=== PATIENT | male | born 1950 | race Two or more races ===

== ENCOUNTER 2025-02-10 18:03 | Inpatient (IN) | payer MEDICARE, SELFPAY ==
[2025-02-10 18:13] VITALS: BP 154/73; PULSE 72; RESP 17; TEMP 36.8; O2SAT 98; BMI 29.2
--- NOTE | 2025-02-10 18:40 | XR_ITS ---
Examination: Abdomen sonogram, Limited Date and time of exam: February 10, 2025, 1910 hrs. Indications: Epigastric pain 4 days with nausea Technique: Real-time jesus scale transabdominal sonographic images of the upper abdomen obtained. Findings: Contracted gallbladder No stones seen Common bile duct 0.3 cm Pancreatic head 2.7 cm Liver 15.9 cm fatty infiltration lobular contour Normal hepatopedal portal venous flow Patent IVC Impression: Repeat the gallbladder portion of this study with fasting Suspicious for primary hepatocellular disease
--- NOTE | 2025-02-10 18:40 | EDRME_ITS ---
Rapid Medical Screening Exam [facility] Arrival date/time: 02/10/25 18:03 74M with history of appendectomy, DM and HTN presents to ED with 3 day of intermittent epigastric/upper ab pain and some N/V. Normal output. Chief Complaint: Abdominal Pain Time Seen by Provider: 02/10/25 18:40 Vital signs: Vital Signs Temperature 98.2 F 02/10/25 18:13 Pulse Rate 72 02/10/25 18:13 Respiratory Rate 17 02/10/25 18:13 Blood Pressure 154/73 H 02/10/25 18:13 Pulse Oximetry (%) 98 02/10/25 18:13 Oxygen Delivery Method Room Air 02/10/25 18:13
--- NOTE | 2025-02-10 18:41 | EDNOTE_ITS ---
ED General RME/HPI General Chief complaint: Abdominal Pain Stated complaint: ABD PAIN, NAUSEA AND HEADACHE Time Seen by Provider: 02/10/25 18:40 Arrival date/time: 02/10/25 18:03 RME / HPI RME / HPI narrative: 02/10/25 18:03 74M with history of appendectomy, DM and HTN presents to ED with 3 day of intermittent epigastric/upper ab pain with associated vomiting that was described as bilious. Patient reports that he has had pain in his epigastric region that has been radiating to his back and also going to the left and right side of his abdomen. He denies any chest pain, shortness of breath, however has not been able to tolerate his meals fully, last time he vomited today was 2 PM. Denies any history of gallbladder disease, denies any recent drinking as well. He says his pain right now is rated 12 out of 10 at this time. Denies any recent blood in his stool. Patient denies blood in his vomit. Denies blood in his stool. No shortness of breath. Related Data Home Medications ?Medication ?Instructions ?Recorded ?Confirmed metformin 1,000 mg tablet 1,000 mg PO BID #0 tabs 12/24 (Glucophage) Aspirin Ec * (ECOTRIN *) 81 mg PO QDAY ##0 04/21/15 Allergies Allergy/AdvReac Type Severity Reaction Status Date / Time NKA* Allergy Uncoded 02/10/25 18:07 Review of Systems Review of Systems Narrative Review of Systems: Constitutional: No fever, chills, fatigue, weakness, weight loss HEENT: No eye pain, vision loss, ear pain, hearing loss, dysphagia, Cardiovascular: No chest pain, palpitations, edema, pain with walking Respiratory: No cough, shortness of breath, wheezing GI: + Nausea, vomiting, abdominal pain, no constipation, blood in stool, loss of appetite, heartburn Extremities: No presence of pitting edema MSK: No back pain, joint pain, joint swelling Neuro: No dizziness, numbness, weakness, headaches, seizures, tremors Psych: No anxiety, depression ED Exam Narrative Physical exam: General: AAOx3, NAD, HEENT: Dry mucous membranes, conjunctiva clear, EOMI, PERRLA, Cardiovascular: S1, S2, radial pulses +2 bilat, RRR Pulmonary: CTAB bilat no cough, no wheezing GI: Tenderness to palpitation in RUQ and LUQ, abdomen soft, no rebound tenderness or distension, FADUMO exam shows some minimal stool that is slightly red Extremities: No presence of trace or pitting edema in lower extremities bilaterally, dorsalis pedis pulses +2 bilaterally Neuro: AAOx3, no focal motor or sensory deficits in the UE or LE bilat Psych: Good judgement, thought and behavior Course Quality Measures none Orders Category Date Time Status Bedside Blood Glucose Q2HX3 Care 02/10/25 21:45 Active COVID-19 Screening Questionnaire NOW Care 02/10/25 22:37 Active Decision to Admit X1 Care 02/10/25 22:37 Completed Insert IV NOW Care 02/10/25 21:42 Active NPO NOW Care 02/10/25 21:46 Active Diet NPO (NOW) Diet 02/10/25 21:[address] abdomen pelvis wo con Stat Exams 02/10/25 23:16 Taken KUB [XR abdomen 1V] Stat Exams 02/10/25 23:09 Taken US gall bladder Stat Exams 02/10/25 18:40 Completed CBC Stat Lab 02/10/25 18:55 Completed CMP [Comprehensive Metabolic Panel] Stat Lab 02/10/25 18:55 Completed Lipase Stat Lab 02/10/25 18:55 Completed Urinalysis, C/S if Indicated Stat Lab 02/10/25 19:17 Completed ALBUTEROL RT 0.5ml [Proventil Rt 0.5ml] Med 02/10/25 21:54 Discontinued 2.5 mg .ROUTE .STK-MED ONE ALBUTEROL RT 0.5ml [Proventil Rt 0.5ml] Med 02/10/25 21:42 Discontinued 2.5 mg INH X1 ONE Dextrose 50% Syr [D50w Syringe Abboject] Med 02/10/25 21:44 Active 25 ml IV Q15MIN PRN Dextrose 50% Syr [D50w Syringe Abboject] Med 02/10/25 21:44 Active 50 ml IV Q15MIN PRN Dextrose 50% Syr [D50w Syringe Abboject] Med 02/10/25 21:42 Discontinued 50 ml IVP X1 ONE Famotidine [Pepcid] Med 02/10/25 18:39 Discontinued 40 mg PO X1 ONE Glucagon Inj Med 02/10/25 21:44 Active 1 mg IM Q15MIN PRN HYDROmorphone INJ [Dilaudid Inj] Med 02/10/25 21:42 Discontinued 1 mg IVP X1 ONE Insulin Regular Med 02/10/25 21:42 Discontinued 5 unit IV X1 ONE Ondansetron Odt [Zofran Odt] Med 02/10/25 18:39 Discontinued 4 mg PO X1 ONE Sodium Chloride 0.9% 1000 ml [Ns] 1,000 ml Med 02/10/25 21:46 Discontinued IV 999 mls/hr Sodium Chloride 0.9% 1000 ml [Ns] 1,000 ml Med 02/10/25 21:59 Discontinued IV 999 mls/hr Sodium Chloride Rt Moraima 0.9% [NS Rt Moraima 0.9%] Med 02/10/25 21:42 Active 3 ml INH PRN PRN Vital Signs Vital signs: Vital Signs Temperature 98.2 F 02/10/25 18:13 Pulse Rate 72 02/10/25 18:13 Respiratory Rate 17 02/10/25 18:13 Blood Pressure 154/73 H 02/10/25 18:13 Pulse Oximetry (%) 98 02/10/25 18:13 Oxygen Delivery Method Room Air 02/10/25 18:13 Discharge Plan Prescriptions/Referrals Prescriptions/Med Rec: No Action metformin [Glucophage] 1,000 MG tablet 1,000 mg PO BID Qty: 0 Aspirin Ec * (ECOTRIN *) 81 MG TABLET.DR 81 mg PO QDAY Qty: 0 Referrals: Ebony Sauer MD [Primary Care Provider] - In 1 week Problem List Clinical Impression: GI bleed Patient/Caregiver Discharge Instructions Print Language: [place] Attestation Attestation I, Dr. Oneil, have reviewed the history, exam, and assessment of the patient. I have evaluated the patient independently and agree with the plan of care documented by the resident Dr. Coe. All diagnostic studies were reviewed and discussed. I confirm the diagnosis as documented by the resident. I was present during the Medical Decision Making for this patient. The patient?s plan of care was created between myself and the resident and consistent with our discussion of the patient?s case. Patient otherwise has a soft abdomen. No rebound. Doubt perforation. EKG shows no ST elevation OK. His blood pressure stable 124/45 without pulse of 60. He is afebrile. White count is noted to be 14,000 however he is H&H is low at 7.3/21 which is new. Platelets are normal at 349. Potassium is noted to be 5.9 and this is mild hyperkalemia. BUN/creatinine is noted to be elevated at 28/1.7. Otherwise his LFTs are normal and lipase is normal. Urinalysis does not show UTI. Patient has a normal gallbladder. The patient is admitted to the medicine team for lower GI bleed. 2350 hrs. will add troponin although likely not cardiac at this time. The hospitalist team requested a CT scan. While in the emergency department is noted that teleradiology is has a global outage and the CT may not be read tonight however the CT is ordered as requested by the hospice team. KUB was canceled. MDM Narrative MDM hospital course (for use when minimal MDM required): Differential diagnosis includes lower GI bleed, upper GI bleed, alcohol use, pancreatitis, diverticulitis. OK. 2019: Labs reviewed which showed leukocytosis, hemoglobin 7.3, creatinine 1.7, plus floor glucose in the urine. Concern for GI bleed thus we performed FADUMO and FOBT was positive. Despite patient not having reported blood in stool or hematemesis, we are concern for gastric ulcer and in the setting of possible acute blood loss anemia, there is also KOLBY this be related to GI bleed. Patient also given hyperkalemia cocktail with breathing treatment and insulin. Patient also given 2 L bolus. 2041: Spoke with hospitalist team and discussed case, they accept patient for admission. Medication Administration(s) Medication Administration History Dextrose (Dextrose 50%-Water Inj 50 Ml Syringe) 25 ml IV Q15MIN PRN PRN Reason: BG 50-70 responsive npo pt Stop: 03/12/25 21:43 Dextrose (Dextrose 50%-Water Inj 50 Ml Syringe) 50 ml IV Q15MIN PRN PRN Reason: BG <50 OR BG <70 & pt unresponsive Stop: 03/12/25 21:43 Glucagon (Glucagon Inj 1 Mg Vial) 1 mg IM Q15MIN PRN PRN Reason: BG <70, and no IV access Sodium Chloride (Sodium Chloride Rt Moraima 0.9% 3 Ml Nebu) 3 ml INH PRN PRN PRN Reason: SOLN Stop: 03/12/25 21:41 Last Admin: 02/10/25 21:58 Dose: 3 ml Documented By: TOÑO Discontinued Medications Albuterol (Albuterol Rt 2.5 Mg/0.5 Ml Nebu) 2.5 mg INH X1 ONE Stop: 02/10/25 21:43 Last Admin: 02/10/25 21:56 Dose: 2.5 mg Documented By: TOÑO Albuterol (Albuterol Rt 2.5 Mg/0.5 Ml Nebu) Confirm Administered Dose 2.5 mg .ROUTE .STK-MED ONE Stop: 02/10/25 21:55 Last Admin: 02/10/25 21:56 Dose: Not Given Documented By: TOÑO Non-Admin Reason: Duplicate Medication on eMAR Dextrose (Dextrose 50%-Water Inj 50 Ml Syringe) 50 ml IVP X1 ONE Stop: 02/10/25 21:43 Last Admin: 02/10/25 22:17 Dose: 50 ml Documented By: BASILIA Famotidine (Famotidine 20 Mg Tablet) 40 mg PO X1 ONE Stop: 02/10/25 18:40 Last Admin: 02/10/25 19:30 Dose: 40 mg Documented By: CONNOR Hydromorphone HCl (Hydromorphone Inj 2 Mg/Ml Vial) 1 mg IVP X1 ONE Stop: 02/10/25 21:43 Last Admin: 02/10/25 22:17 Dose: 1 mg Documented By: BASILIA Sodium Chloride (Ns) 1,000 mls @ 999 mls/hr IV .Q1H1M ONE Stop: 02/10/25 22:46 Last Infusion: 02/10/25 23:17 Dose: Infused Documented By: Admin: 02/10/25 22:16 Dose: 999 mls/hr Documented By: BASILIA Sodium Chloride (Ns) 1,000 mls @ 999 mls/hr IV .Q1H1M ONE Stop: 02/10/25 22:59 Last Infusion: 02/10/25 23:18 Dose: Infused Documented By: Admin: 02/10/25 22:17 Dose: 999 mls/hr Documented By: BASILIA Insulin Human Regular (Insulin Hum Regular 1 Unit/0.01 Ml (Per Unit)) 5 unit IV X1 ONE Stop: 02/10/25 21:43 Last Admin: 02/10/25 22:15 Dose: 5 unit Documented By: BASILIA Co-signed By: CVL Ondansetron HCl (Ondansetron Odt 4 Mg Tabrap) 4 mg PO X1 ONE; Protocol Stop: 02/10/25 18:40 Last Admin: 02/10/25 19:30 Dose: 4 mg Documented By: CONNOR
[2025-02-10 19:06] LABS: Basophils # (Auto) 0.0 Thou/mm3 (0.0-0.2); Basophils % (Auto) 0 % (0-2.5); Eosinophils # (Auto) 0.1 Thou/mm3 (0.0-0.5); Eosinophils % (Auto) 1 % (0-10); Hematocrit 21.7 % (41.0-53.0); Immature Granulocytes Auto 0.07 Thou/mm3 (0.00-0.00); Lymphocytes # (Auto) 1.3 Thou/mm3 (1.0-4.8); Lymphocytes % (Auto) 10 % (10-50); Mean Corpuscular HGB Conc 33.6 g/dl (31.0-37.0); Mean Corpuscular Hemoglobin 32.0 pg (25.0-35.0); Mean Corpuscular Volume 95 fL (80-100); Monocytes # (Auto) 0.6 Thou/mm3 (0.0-0.8); Monocytes % (Auto) 4 % (0-12); Neutrophils # (Auto) 12.1 Thou/mm3 (1.8-7.7); Neutrophils % (Auto) 85 % (37-80); Nucleated Red Blood Cell # 0.00 Thou/mm3 (0.00-0.00); Nucleated Red Blood Cell % 0 /100 WBC (0); Platelet Count 349 Thou/mm3 (140-440); RDW Standard Deviation 50.2 fL (35.1-43.9); Red Blood Count 2.28 Miln/mm3 (4.50-5.90); White Blood Count 14.2 Thou/mm3 (3.8-10.6)
[2025-02-10 19:16] LABS: Hemoglobin 7.3 g/dL (13.5-16.0)
[2025-02-10 19:21] LABS: Alanine Aminotransferase 21 U/L (10-49); Albumin, Serum 3.8 gm/dL (3.4-4.8); Albumin/Globulin Ratio 1.7 (1.2-2.2); Alkaline Phosphatase 101 U/L (46-116); Anion Gap 8 (7-16); Aspartate Amino Transferase 17 U/L (0-34); BUN/Creatinine Ratio 16 Ratio (12-20); Bilirubin,Total 0.2 mg/dL (0.3-1.2); Blood Urea Nitrogen 28 mg/dL (9-23); Calcium 8.7 mg/dL (8.3-10.6); Calcium (Corrected) 8.9 mg/dL (8.5-10.1); Carbon Dioxide 25.6 mMol/L (20.0-31.0); Chloride 102 mMol/L (98-107); Creatinine (Component) 1.7 mg/dL (0.6-1.3); Estimated Creatinine Clearance 34.6 mL/min (>60); Globulin 2.2 gm/dL (2.3-3.5); Glucose 200 mg/dL (74-106); Lipase 37 U/L (12-53); Osmolality,Calculated 283 (275-295); Potassium 5.9 mMol/L (3.4-5.1); Sodium 136 mMol/L (136-145); Total Protein 6.0 gm/dL (5.7-8.2); eGFR 42 See Note
[2025-02-10] MEDS: ONDANSETRON ODT 4 MG TABRAP PO (19:30)
[2025-02-10] MEDS: FAMOTIDINE 20 MG TABLET 40 MG PO (19:30)
[2025-02-10 19:48] LABS: Collection Type, Urine Clean Catch
[2025-02-10 20:17] LABS: Bilirubin,Urine Negative (Negative); Blood,Urine Negative (Negative); Clarity,Urine Clear (Clear/Hazy); Color,Urine Lt-Yellow (Lt Yel-Yel); Culture Indicated,Urine Not Indicated; Glucose, Urine 4+ (Negative); Ketones,Urine Negative (Negative); Leukocyte Esterase,Urine Negative (Negative); Nitrite,Urine Negative (Negative); PH,Urine 6.5 (5.0-7.0); Protein,Urine Trace (Neg - Trace); RBC,Urine 2 /hpf (0-3); Specific Gravity,Urine 1.023 (1.001-1.035); Squamous Epithelial Cell,Urine < 1 /hpf (0-5); Urobilinogen,Urine Negative mg/dL (0.0-1.0); WBC,Urine < 1 /hpf (0-5)
[2025-02-10 20:37] VITALS: BP 161/61; PULSE 57; RESP 12; TEMP 36.8; O2SAT 99
[2025-02-10 21:56] VITALS: PULSE 58
[2025-02-10] MEDS: ALBUTEROL RT 2.5 MG/0.5 ML NEBU INH (21:56)
[2025-02-10] MEDS: SODIUM CHLORIDE RT SOL 0.9% 3 ML NEBU INH (21:58)
[2025-02-10 21:59] VITALS: PULSE 56; RESP 16; O2SAT 100
[2025-02-10] MEDS: INSULIN HUM REGULAR 1 UNIT/0.01 ML (PER UNIT) 5 UNIT IV (22:15)
[2025-02-10] MEDS: SODIUM CHLORIDE 0.9% 1000 ML 1,000 ML 999 ML IV ×2 (22:16→22:17)
[2025-02-10] MEDS: DEXTROSE 50%-WATER INJ 50 ML SYRINGE IVP (22:17)
[2025-02-10] MEDS: HYDROmorphone INJ 2 MG/ML VIAL 1 MG IVP (22:17)
[2025-02-10 22:34] VITALS: BP 124/45; PULSE 60; RESP 16; TEMP 36.6; O2SAT 98
--- NOTE | 2025-02-10 23:09 | XR_ITS ---
Examination: Abdomen AP single view Technique: AP portable supine abdomen, single view Exam date and time: February 10, 2025, 11:13 PM Indications: Upper abdominal pain beginning 3 days ago. Findings: Moderate air and stool throughout the colon No obstruction. No free air Prominent osteopenia Moderate bilateral hip osteoarthritis Impression: Moderate air and stool throughout the colon No obstruction
--- NOTE | 2025-02-10 23:16 | XR_ITS ---
Examination: CT abdomen and pelvis without contrast. Coronal 3-D reconstructions. Sagittal 2-D reconstructions. Date and time of exam:February 10, 2025, 11:32 PM, comparison November 05, 2022 Indications: Abdominal pain and vomiting today CTDI: vol (mGy): 5.52 DLP: (mGycm): 323 Technique: Axial images of the abdomen have been obtained, 3 mm slice thickness Intravenous contrast material has not been administered. Low dose protocols were performed. One or more of the following dose reduction techniques were used; automated exposure control, adjustment of the mA and/or KV according to patient size, use of iterative reconstruction technique. Findings: 8mm pulmonary nodule right lower lobe Moderate enlargement cardiac contour Liver is irregular in contour No definite gallstones Spleen is not enlarged No pancreatic or adrenal mass No renal or ureteral calculi 23 mm posterior left renal cyst Heavy abdominal aortic calcification no aneurysmal dilatation Trace ascites Mildly fluid distended small bowel loops and fluid distended right colon No bowel obstruction Distended urinary bladder Prostate is irregular in contour and enlarged 4.5 x 4.6 cm in dimension No pericecal inflammatory change Prominent osteopenia Impression: 8mm pulmonary nodule right lower lobe, recommend PA chest follow-up Cirrhosis versus primary hepatocellular disease Trace ascites No bowel obstruction No CT findings of appendicitis Prostate irregular in contour and moderately enlarged with distended urinary bladder Mild small bowel ileus versus enteritis, mild colitis pattern
[2025-02-11] VITALS (24 sets, daily range): BP systolic 106–149; BP diastolic 45–66; PULSE 54–88; RESP 11–20; TEMP 35.7–36.7; O2SAT 93–100; BMI 20.5
--- NOTE | 2025-02-11 00:02 | EKG_ITS ---
[facility] Test Date: 2025-02-11 Pat Name: DAMIAN BRADSHAW Department: Room: - Gender: Male [employer]: : 1950 Requested By: Stanislav Ledesma Order Number: [id number] Reading MD: Stanislav Ledesma Measurements Intervals [place] Rate: 54 P: 72 MD: 151 QRS: 29 QRSD: 113 T: 49 QT: 461 QTc: 441 Interpretive Statements SINUS BRADYCARDIA No previous ECG available for comparison /store/S0/[id number]/ecg/[id number].pdf
--- NOTE | 2025-02-11 00:18 | PD.RESHP ---
Documentation for date of: 02/11/25 HPI History of Present Illness Chief complaint: Abdominal pain History of present illness: 74-year-old male with past medical history of hypertension, hyperlipidemia, diabetes mellitus type 2, coronary artery disease status post CABG x 3 (2011) who presented to the ED due to vomiting. Patient states that he has had approximately around 3 days of abdominal pain has been progressively worsening with associated nausea and nonbilious, nonbloody bloody vomiting states the vomitus is mostly food particles. He denies any recent use of NSAIDs, pain has not worsening or improving with food. He also has a wound on his first metatarsal of left lower extremity that has not healed for the past 4 months but states no pain nor any fevers at this time. He denies any alcohol, cigarette, drug use. He denies fever, chills, shortness of breath, chest pain, changes in urinary or bowel habits. Patient will be admitted for workup for GI bleed, KOLBY, Hyperkalemia. ED course: BP 154/73, HR 72, saturating 98% on room air. Labs significant for hemoglobin 7.3, hematocrit 21.7, potassium 5.9, BUN 28, creatinine 1.7, UA shows some glucose +4 but negative for UTI. EKG shows sinus bradycardia. CT abdomen pelvis shows 8mm pulmonary nodule right lower lobe, Cirrhosis versus primary hepatocellular disease, Trace ascites, No bowel obstruction, No CT findings of appendicitis, Prostate irregular in contour and moderately enlarged with distended urinary bladder, Mild small bowel ileus versus enteritis, mild colitis pattern PMHx: As above SX Hx: Appendectomy, CABG x 3 Social Hx: Denies cigarette use, denies alcohol use, denies illicit substances including THC FH X: Unknown Review of Systems Review of Systems Systems Reviewed: All systems reviewed, normal except as documented Exam Vital Signs Temp Pulse Resp BP Pulse Ox O2 Del Method 97.8 F 60 16 124/45 L 98 Room Air 02/10/25 22:34 02/10/25 22:34 02/10/25 22:34 02/10/25 22:34 02/10/25 22:34 02/10/25 22:34 Narrative Exam Physical Exam GENERAL: NAD, AAOx3 HEENT: Moist mucosa. Eyes open, symmetrical, & clear CARDIO: Heart RRR, no obvious murmurs PULM: No noted coughing/dyspnea CTA B/L, no R/W/R GI: Abdomen soft, nondistended, no pain on palpation. BSx4 SKIN/MSK/EXT: First metatarsal of right lower extremity amputated, left lower extremity first metatarsal ulcer and wound wet, no pain on palpation. Diminished pulses bilateral lower extremities NEURO: AAOx3, no focal neuro deficits, able to move all 4 extremities Results: Labs 02/11/25 16:34 02/11/25 16:34 Labs: Short CBC 02/10/25 Range/Units 18:55 WBC 14.2 H (3.8-10.6) Thou/mm3 Hgb 7.3 L (13.5-16.0) g/dL Hct 21.7 L* (41.0-53.0) % Plt Count 349 (140-440) Thou/mm3 BMP 02/10/25 18:55 Sodium 136 Potassium 5.9 H Chloride 102 Carbon Dioxide 25.6 BUN 28 H Creatinine 1.7 H Glucose 200 H Calcium 8.7 Liver Function 02/10/25 Range/Units 18:55 Total Bilirubin 0.2 L (0.3-1.2) mg/dL AST 17 (0-34) U/L ALT 21 (10-49) U/L Alkaline Phosphatase 101 (46-116) U/L Albumin 3.8 (3.4-4.8) gm/dL Urine 02/10/25 Range/Units 19:17 Urine Color Lt-Yellow (Lt Yel-Yel) Urine Clarity Clear (Clear/Hazy) Urine pH 6.5 (5.0-7.0) Ur Specific [place] 1.023 (1.001-1.035) Urine Protein Trace (Neg - Trace) Urine Glucose (UA) 4+ A (Negative) Quality Measures Quality Measures VTE prophylaxis Advance care planning discussed with:: patient Medications Home Medications and Allergies Home Medications ?Medication ?Instructions ?Recorded ?Confirmed ?Type metformin 1,000 mg tablet 500 mg PO BID #0 tabs 02/16/15 02/11/25 History (Glucophage) atorvastatin 80 mg tablet 80 mg PO HS 02/11/25 02/11/25 History diltiazem HCl 180 mg 180 mg PO Q12H 02/11/25 02/11/25 History capsule,extended release 24 hr empagliflozin 25 mg tablet 25 mg PO QDAY 02/11/25 02/11/25 History (Jardiance) gabapentin 100 mg capsule 100 mg PO Q12H 02/11/25 02/11/25 History sulfamethoxazole 800 1 tab PO QDAY 02/11/25 02/11/25 History mg-trimethoprim 160 mg tablet tamsulosin 0.4 mg capsule 0.4 mg PO QDAY 02/11/25 02/11/25 History Allergies Allergy/AdvReac Type Severity Reaction Status Date / Time No Known Allergies Allergy Unverified 02/11/25 17:53 Visit Medications Acetaminophen (Acetaminophen 325 Mg Tablet) 650 mg PO Q6H PRN PRN Reason: Fever >100.4 Stop: 03/13/25 00:02 Acetaminophen (Acetaminophen 325 Mg Tablet) 650 mg PO Q6H PRN PRN Reason: PAIN SCALE 1-3 (mild Stop: 03/13/25 00:02 Dextrose (Dextrose 50%-Water Inj 50 Ml Syringe) 50 ml IV Q15MIN PRN PRN Reason: BG <50 OR BG <70 & pt unresponsive Stop: 03/12/25 21:43 Dextrose (Dextrose 50%-Water Inj 50 Ml Syringe) 25 ml IV Q15MIN PRN PRN Reason: BG 50-70 responsive npo pt Stop: 03/13/25 00:13 Dextrose (Dextrose 50%-Water Inj 50 Ml Syringe) 50 ml IV Q15MIN PRN PRN Reason: BG <50 OR BG <70 & pt unresponsive Stop: 03/13/25 00:13 Glucagon (Glucagon Inj 1 Mg Vial) 1 mg IM Q15MIN PRN PRN Reason: BG <70, and no IV access Glucagon (Glucagon Inj 1 Mg Vial) 1 mg IM Q15MIN PRN PRN Reason: BG <70, and no IV access Insulin Human Lispro (Insulin Lispro (Admelog) 1 Unit/0.01 Ml Unit) 0 unit SC AC [facility]; Protocol Stop: 03/13/25 07:29 Ondansetron HCl (Ondansetron Inj 2 Mg/Ml Inj 2 Ml) 4 mg IVP Q6H PRN; Protocol PRN Reason: NAUSEA OR VOMITING Stop: 03/13/25 00:02 Pantoprazole Sodium (Pantoprazole Inj 40 Mg Vial) 40 mg IVP BID MURIEL Stop: 03/13/25 08:59 Sennosides (Senna Tablet) 1 tab PO QDAY MURIEL; Protocol Stop: 03/13/25 08:59 Sodium Chloride (Sodium Chloride Rt Moraima 0.9% 3 Ml Nebu) 3 ml INH PRN PRN PRN Reason: SOLN Stop: 03/12/25 21:41 Last Admin: 02/10/25 21:58 Dose: 3 ml Discontinued Medications Albuterol (Albuterol Rt 2.5 Mg/0.5 Ml Nebu) 2.5 mg INH X1 ONE Stop: 02/10/25 21:43 Last Admin: 02/10/25 21:56 Dose: 2.5 mg Dextrose (Dextrose 50%-Water Inj 50 Ml Syringe) 50 ml IVP X1 ONE Stop: 02/10/25 21:43 Last Admin: 02/10/25 22:17 Dose: 50 ml Dextrose (Dextrose 50%-Water Inj 50 Ml Syringe) 25 ml IV Q15MIN PRN PRN Reason: BG 50-70 responsive npo pt Stop: 03/12/25 21:43 Famotidine (Famotidine 20 Mg Tablet) 40 mg PO X1 ONE Stop: 02/10/25 18:40 Last Admin: 02/10/25 19:30 Dose: 40 mg Hydromorphone HCl (Hydromorphone Inj 2 Mg/Ml Vial) 1 mg IVP X1 ONE Stop: 02/10/25 21:43 Last Admin: 02/10/25 22:17 Dose: 1 mg Sodium Chloride (Ns) 1,000 mls @ 999 mls/hr IV .Q1H1M ONE Stop: 02/10/25 22:46 Last Infusion: 02/10/25 23:17 Dose: Infused Sodium Chloride (Ns) 1,000 mls @ 999 mls/hr IV .Q1H1M ONE Stop: 02/10/25 22:59 Last Infusion: 02/10/25 23:18 Dose: Infused Insulin Human Regular (Insulin Hum Regular 1 Unit/0.01 Ml (Per Unit)) 5 unit IV X1 ONE Stop: 02/10/25 21:43 Last Admin: 02/10/25 22:15 Dose: 5 unit Ondansetron HCl (Ondansetron Odt 4 Mg Tabrap) 4 mg PO X1 ONE; Protocol Stop: 02/10/25 18:40 Last Admin: 02/10/25 19:30 Dose: 4 mg Assessment & Plan Plan 74-year-old male with past medical history as stated above who presented to the ED due to abdominal pain. Patient is admitted for GI workup, KOLBY, hyperkalemia. #GI bleed, likely upper #Melena Possibly secondary to gastric ulcer Patient presented with abdominal pain, nausea, nonbloody vomiting, melena, denies any iron supplementation, NSAID use Found to be FOBT positive Hemoglobin on admission 7.3 on previous chart review noted to be 10.7 ? Protonix 40mg IV twice daily ? GI consulted, appreciate recs ? Transfuse if hemoglobin less than 7 ? Follow-up CBC #Acute Kidney injury #Hyperkalemia Prerenal versus postrenal CT shows distended bladder Creatinine 1.7, potassium 5.9 In the ED patient received hyperkalemia cocktail and 2 L of IV fluids ? [place] catheter placed ? on IVF at 60 mL/h ? Avoid nephrotoxins ? Renally dose medications ? Monitor CMP #Left lower extremity wound. #Concern for osteomyelitis Patient has a chronic wound on his left toe that has not healed >4months, currently wet He has prior history of osteomyelitis on the right toe for which he saw wound care and later amputated ? X-ray left toe ordered ? Follow-up ESR/CRP ? Wound care ordered Chronic problems: #Hypertension #Hyperlipidemia #CAD status post CABG X3 #Diabetes mellitus type 2, [id number] ? SSI ? Hypoglycemia protocol ? Hold antiplatelet therapy in setting of GI bleed ? Withholding antihypertensive at this time while awaiting med rec and blood pressure normotensive Health Maintenance: Disposition: Telemetry Fluids: LR Feeding: N.p.o. Thrombo prophylaxis: SCDs Gastric Ulcer prophylaxis: Pantoprazole CODE STATUS: Full code Case discussed with my attending Dr. Sharon Beck MD PGY-2 Disclaimer: Despite multiple revisions, due to the dictation software being used, the document bellow may not be free of grammatical errors including phonetic/typographic errors. However, this does not deter from our commitment to providing health care in the patient's best interest in mind. Attending Provider Attestation/Addendum After examination of the patient and review of the clinical data I feel that this patient needs admission to the hospital for further treatment/evaluation. Plan of care discussed with patient and is in agreement. I Stanislav Herrera MD, attest that I was physically present for ricardo portions of evaluation, and examined patient, labs and imagings and plan of care were discussed with IM residents team, and I agree with the findings and plans documented above.
--- NOTE | 2025-02-11 00:24 | XR_ITS ---
Examination: Toes, left foot first digit Technique: Toes AP oblique lateral 3 views left foot first digit Date and time of exam: February 11, 2025, 0030 hrs. Indications: Redness swelling and pain involving the left first toe today Findings: Soft tissue swelling about the first toe Suspicious for early cortical bone destruction involving the ungual tuft tip with adjacent soft tissue swelling, on the lateral view suspicious for early cortical bone destruction involving the plantar surface of the distal phalanx Impression: Early osteomyelitis distal phalanx first digit with marked soft tissue thinning at the tip of the first digit Consider MRI foot without contrast follow-up
[2025-02-11] MEDS: RINGERS LACTATED 1000 ML 1,000 ML 60 ML IV (00:40)
[2025-02-11 01:54] LABS: Sed Rate (ESR) 52 mm/hr (0-20)
[2025-02-11 02:20] LABS: Troponin I < 0.020 ng/mL (0.0-0.045)
[2025-02-11 02:34] LABS: C-Reactive Protein 15.2 mg/dL (0.0-0.9)
[2025-02-11] MEDS: ACETAMINOPHEN 325 MG TABLET 650 MG PO (05:58)
[2025-02-11 07:20] LABS: Basophils # (Auto) 0.0 Thou/mm3 (0.0-0.2); Basophils % (Auto) 0 % (0-2.5); Eosinophils # (Auto) 0.0 Thou/mm3 (0.0-0.5); Eosinophils % (Auto) 0 % (0-10); Hematocrit 20.5 % (41.0-53.0); Immature Granulocytes Auto 0.08 Thou/mm3 (0.00-0.00); Lymphocytes # (Auto) 1.6 Thou/mm3 (1.0-4.8); Lymphocytes % (Auto) 12 % (10-50); Mean Corpuscular HGB Conc 33.2 g/dl (31.0-37.0); Mean Corpuscular Hemoglobin 31.5 pg (25.0-35.0); Mean Corpuscular Volume 95 fL (80-100); Monocytes # (Auto) 0.7 Thou/mm3 (0.0-0.8); Monocytes % (Auto) 5 % (0-12); Neutrophils # (Auto) 11.1 Thou/mm3 (1.8-7.7); Neutrophils % (Auto) 82 % (37-80); Nucleated Red Blood Cell # 0.00 Thou/mm3 (0.00-0.00); Nucleated Red Blood Cell % 0 /100 WBC (0); Platelet Count 348 Thou/mm3 (140-440); RDW Standard Deviation 50.2 fL (35.1-43.9); Red Blood Count 2.16 Miln/mm3 (4.50-5.90); White Blood Count 13.5 Thou/mm3 (3.8-10.6)
[2025-02-11 07:23] LABS: Hemoglobin 6.8 g/dL (13.5-16.0)
[2025-02-11 07:38] LABS: Alanine Aminotransferase 19 U/L (10-49); Albumin, Serum 3.5 gm/dL (3.4-4.8); Albumin/Globulin Ratio 1.8 (1.2-2.2); Alkaline Phosphatase 94 U/L (46-116); Anion Gap 7 (7-16); Aspartate Amino Transferase 15 U/L (0-34); BUN/Creatinine Ratio 20 Ratio (12-20); Bilirubin,Total 0.2 mg/dL (0.3-1.2); Blood Urea Nitrogen 28 mg/dL (9-23); Calcium 8.3 mg/dL (8.3-10.6); Calcium (Corrected) 8.7 mg/dL (8.5-10.1); Carbon Dioxide 23.0 mMol/L (20.0-31.0); Chloride 107 mMol/L (98-107); Creatinine (Component) 1.4 mg/dL (0.6-1.3); Estimated Creatinine Clearance 34.5 mL/min (>60); Globulin 1.9 gm/dL (2.3-3.5); Glucose 121 mg/dL (74-106); Magnesium 2.3 mg/dL (1.6-2.6); Osmolality,Calculated 280 (275-295); Potassium 5.7 mMol/L (3.4-5.1); Sodium 137 mMol/L (136-145); Total Protein 5.4 gm/dL (5.7-8.2); eGFR 53 See Note
[2025-02-11] MEDS: cefTRIAXone 2 GM in SODIUM CHLORIDE 0.9% (Popper) 50 ML IV (07:57)
[2025-02-11] MEDS: TAMSULOSIN HCL 0.4 MG CAPSULE PO (08:18)
[2025-02-11 08:20] LABS: Procalcitonin 0.16 ng/ml (0.0-0.49)
[2025-02-11 09:04] LABS: Misc Send Out* See Sep Rpt
[2025-02-11] MEDS: ALBUTEROL RT 2.5 MG/0.5 ML NEBU INH (09:13)
--- NOTE | 2025-02-11 10:01 | PD.RESCONSUL ---
HPI Data of Consult Requesting Physician: Girish Mckeon DO Admitting Provider: Stanislav Herrera MD Attending Provider: Girish Mckeon DO Primary Care Provider: Ebony Sauer MD Consult Narrative Reason for consult: Hgb 6.8 and FOBT + History of present illness: Mr Trammell is a 74 yo gentleman with a hx of CAD s/p cabg x3 2012, T2DM, BPH, HTN, HLD, who presented to the ED due to vomiting and RUQ tenderness. He had nausea that started 4 days ago and vomiting and abdominal pain that started 1 day prior to presenting to the ED. He reports that he used to be a heavy alcohol drinker but does not currently drink. He last drank in 2003. He has never been told that he has liver problems and has never been hospitalized due to varicies. He had recent admission in [facility] 2 months ago for acute symptomatic anemia for which he was given 1 unit of blood. The family is unable to describe what workup he had there. He had previously been taking iron supplements, but he had stopped because he became increasingly constipated. He reports that usually he has bowel movements every day but that he has had increased constipation. He He has never had a colonoscopy nor an endoscopy. He has a well healed amputation of his Right big toe and on his left foot he has a calloused wound on the tip of his Left big toe that he sees a asbestos removal worker in [place] for. xray of foot on this admission shows early osteomyelitis, Dr Resendez was consulted and wound care is on board Pt denies any systemic signs of infection and no recent sick contacts. No NSAIDS, abdominal pain is unchanged post prandial ROS endorses, nausea, nonbloody, non billious emesis, abdominal pain denies, fever, chills, sob, chest pain, dysuria, constipation or diarrhea. ED course: Vitals BP 154/73, HR 72, saturating 98% on room air. Labs significant for hemoglobin 7.3, hematocrit 21.7, potassium 5.9, BUN 28, creatinine 1.7, UA shows some glucose +4 but negative for UTI. EKG shows sinus bradycardia. Imaging significant for: CT abdomen pelvis shows 8mm pulmonary nodule right lower lobe, Cirrhosis versus primary hepatocellular disease, Trace ascites, No bowel obstruction, No CT findings of appendicitis, Prostate irregular in contour and moderately enlarged with distended urinary bladder, Mild small bowel ileus versus enteritis, mild colitis pattern PMHx: As above SX Hx: Appendectomy, CABG x 3 Social Hx: Denies cigarette use, denies current alcohol use (but endorses heavy drinking when he was younger, last drink 2003), denies illicit substances including THC FH X: no fhx of cancer cc:: cc: Girish Mckeon, DO Review of Systems Review of Systems Narrative Review of Systems: as per hpi Past Medical History Surgical History SURGICAL: Positive Coronary Artery Bypass Graft and Amputation Exam Vital Signs Temp Pulse Resp BP Pulse Ox O2 Del Method 96.9 F 61 16 106/66 100 Room Air 02/11/25 08:00 02/11/25 09:14 02/11/25 09:14 02/11/25 08:00 02/11/25 09:14 02/11/25 04:00 Narrative Exam GENERAL: no acute distress, AAO x3, comfortably laying in bed HEENT: Head AT/ NC. Mucous membranes dry. PERRL. NECK: Supple, no lymphadenopathy, no carotid bruits. CARDIOVASCULAR: RRR. Normal S1/S2, No m/r/g. No pitting edema of bilateral LEs. (midline sternal incision, hx of cabg 2011) RESPIRATORY: CTAB. No wheezing, rhonchi, crackles. GASTROINTESTINAL: Abdomen soft, mild RUQ tenderness no palpable masses. Bowel sounds present, no rebound or guarding MUSCULOSKELETAL:? Right hallux is amputated, well healed, and L hallux has calloused nonhealing wound (3-4 months old) NEUROLOGICAL: CN II-XII grossly intact. No focal deficits. Sensation intact, symmetric. PSYCHIATRIC: Awake and alert, not agitated, normal mood and affect. SKIN: No obvious rashes, no jaundice, normal turgor. Results Labs 02/13/25 04:50 02/13/25 04:50 Labs: Short CBC 02/10/25 02/11/25 Range/Units 18:55 06:40 WBC 14.2 H 13.5 H (3.8-10.6) Thou/mm3 Hgb 7.3 L 6.8 L* (13.5-16.0) g/dL Hct 21.7 L* 20.5 L* (41.0-53.0) % Plt Count 349 348 (140-440) Thou/mm3 BMP 02/10/25 02/11/25 18:55 06:40 Sodium 136 137 Potassium 5.9 H 5.7 H Chloride 102 107 Carbon Dioxide 25.6 23.0 BUN 28 H 28 H Creatinine 1.7 H 1.4 H Glucose 200 H 121 H D Calcium 8.7 8.3 Cardiac Enzymes 02/10/25 02/11/25 Range/Units 18:55 01:33 Troponin I Cancelled < 0.020 Liver Function 02/10/25 02/11/25 Range/Units 18:55 06:40 Total Bilirubin 0.2 L 0.2 L (0.3-1.2) mg/dL AST 17 15 (0-34) U/L ALT 21 19 (10-49) U/L Alkaline Phosphatase 101 94 (46-116) U/L Albumin 3.8 3.5 (3.4-4.8) gm/dL Urine 02/10/25 Range/Units 19:17 Urine Color Lt-Yellow (Lt Yel-Yel) Urine Clarity Clear (Clear/Hazy) Urine pH 6.5 (5.0-7.0) Ur Specific [place] 1.023 (1.001-1.035) Urine Protein Trace (Neg - Trace) Urine Glucose (UA) 4+ A (Negative) Quality Measures Quality Measures VTE prophylaxis Advance care planning discussed with:: patient Medications Home Medications and Allergies Home Medications ?Medication ?Instructions ?Recorded ?Confirmed ?Type atorvastatin 80 mg tablet 80 mg PO HS 02/11/25 02/11/25 History diltiazem HCl 180 mg 180 mg PO Q12H 02/11/25 02/11/25 History capsule,extended release 24 hr empagliflozin 25 mg tablet 25 mg PO QDAY 02/11/25 02/11/25 History (Jardiance) gabapentin 100 mg capsule 100 mg PO Q12H 02/11/25 02/11/25 History sulfamethoxazole 800 1 tab PO QDAY 02/11/25 02/11/25 History mg-trimethoprim 160 mg tablet tamsulosin 0.4 mg capsule 0.4 mg PO QDAY 02/11/25 02/11/25 History Allergies Allergy/AdvReac Type Severity Reaction Status Date / Time No Known Allergies Allergy Unverified 02/11/25 17:53 Visit Medications Acetaminophen (Acetaminophen 325 Mg Tablet) 650 mg PO Q6H PRN PRN Reason: Fever >100.4 Stop: 03/13/25 00:02 Acetaminophen (Acetaminophen 325 Mg Tablet) 650 mg PO Q6H PRN PRN Reason: PAIN SCALE 1-3 (mild Stop: 03/13/25 00:02 Last Admin: 02/11/25 05:58 Dose: 650 mg Dextrose (Dextrose 50%-Water Inj 50 Ml Syringe) 25 ml IV Q15MIN PRN PRN Reason: BG 50-70 responsive npo pt Stop: 03/13/25 00:13 Dextrose (Dextrose 50%-Water Inj 50 Ml Syringe) 50 ml IV Q15MIN PRN PRN Reason: BG <50 OR BG <70 & pt unresponsive Stop: 03/13/25 00:13 Glucagon (Glucagon Inj 1 Mg Vial) 1 mg IM Q15MIN PRN PRN Reason: BG <70, and no IV access Lactated Ringer's (Lactated Ringers) 1,000 mls @ 60 mls/hr IV .[id number] [facility] Stop: 02/11/25 17:06 Last Admin: 02/11/25 00:40 Dose: 60 mls/hr Ceftriaxone Sodium 2 gm/ (Sodium Chloride) 50 mls @ 100 mls/hr IV QDAY [facility] Stop: 02/18/25 07:44 Last Admin: 02/11/25 07:57 Dose: 100 mls/hr Insulin Human Lispro (Insulin Lispro (Admelog) 1 Unit/0.01 Ml Unit) 0 unit SC AC [facility]; Protocol Stop: 03/13/25 07:29 Last Admin: 02/11/25 07:47 Dose: Not Given Ondansetron HCl (Ondansetron Inj 2 Mg/Ml Inj 2 Ml) 4 mg IVP Q6H PRN; Protocol PRN Reason: NAUSEA OR VOMITING Stop: 03/13/25 00:02 Pantoprazole Sodium (Pantoprazole Inj 40 Mg Vial) 40 mg IVP BID [facility] Stop: 03/13/25 08:59 Last Admin: 02/11/25 08:18 Dose: 40 mg Sennosides (Senna Tablet) 1 tab PO QDAY [facility]; Protocol Stop: 03/13/25 08:59 Last Admin: 02/11/25 08:18 Dose: 1 tab Sodium Chloride (Sodium Chloride Rt [place] 0.9% 3 Ml Nebu) 3 ml INH PRN PRN PRN Reason: SOLN Stop: 03/12/25 21:41 Last Admin: 02/10/25 21:58 Dose: 3 ml Tamsulosin HCl (Tamsulosin Hcl 0.4 Mg Capsule) 0.4 mg PO QDAY [facility] On Hold: 02/11/25 09:00 Stop: 03/13/25 08:59 Last Admin: 02/11/25 08:18 Dose: 0.4 mg Discontinued Medications Albuterol (Albuterol Rt 2.5 Mg/0.5 Ml Nebu) 2.5 mg INH X1 ONE Stop: 02/10/25 21:43 Last Admin: 02/10/25 21:56 Dose: 2.5 mg Albuterol (Albuterol Rt 2.5 Mg/0.5 Ml Nebu) 2.5 mg INH X1 ONE Stop: 02/11/25 08:51 Last Admin: 02/11/25 09:13 Dose: 2.5 mg Dextrose (Dextrose 50%-Water Inj 50 Ml Syringe) 50 ml IVP X1 ONE Stop: 02/10/25 21:43 Last Admin: 02/10/25 22:17 Dose: 50 ml Dextrose (Dextrose 50%-Water Inj 50 Ml Syringe) 25 ml IV Q15MIN PRN PRN Reason: BG 50-70 responsive npo pt Stop: 03/12/25 21:43 Dextrose (Dextrose 50%-Water Inj 50 Ml Syringe) 50 ml IV Q15MIN PRN PRN Reason: BG <50 OR BG <70 & pt unresponsive Stop: 03/12/25 21:43 Famotidine (Famotidine 20 Mg Tablet) 40 mg PO X1 ONE Stop: 02/10/25 18:40 Last Admin: 02/10/25 19:30 Dose: 40 mg Glucagon (Glucagon Inj 1 Mg Vial) 1 mg IM Q15MIN PRN PRN Reason: BG <70, and no IV access Hydromorphone HCl (Hydromorphone Inj 2 Mg/Ml Vial) 1 mg IVP X1 ONE Stop: 02/10/25 21:43 Last Admin: 02/10/25 22:17 Dose: 1 mg Sodium Chloride (Ns) 1,000 mls @ 999 mls/hr IV .Q1H1M ONE Stop: 02/10/25 22:46 Last Infusion: 02/10/25 23:17 Dose: Infused Sodium Chloride (Ns) 1,000 mls @ 999 mls/hr IV .Q1H1M ONE Stop: 02/10/25 22:59 Last Infusion: 02/10/25 23:18 Dose: Infused Insulin Human Regular (Insulin Hum Regular 1 Unit/0.01 Ml (Per Unit)) 5 unit IV X1 ONE Stop: 02/10/25 21:43 Last Admin: 02/10/25 22:15 Dose: 5 unit Ondansetron HCl (Ondansetron Odt 4 Mg Tabrap) 4 mg PO X1 ONE; Protocol Stop: 02/10/25 18:40 Last Admin: 02/10/25 19:30 Dose: 4 mg Sodium Polystyrene Sulfonate (Sod Polystyrene Sulfon Susp 15 Gm/60 Ml Btl) 15 gm PO X1 ONE Stop: 02/11/25 08:52 Assessment & Plan Plan Mr Trammell is a 74 year old man with hx of cirrhosis, t2dm, CAD s/p CABG in 2011,BPH, HLD, and HTN who presented to the ED with 1 week of nausea and 1 day of nonbillious non bloody emesis, with no systemic signs of infection, who had recent admission to [facility] for acute anemia who recieved 1 unit prbc transfusion, who on admission had hgb of 6.8, and FOBT positive. #Acute Normocytic Anemia 2/2 #Upper vs Lower GI bleed #Cirrhosis Pt has never had a colonoscopy before, no reported family history of colon cancer or other cancers. FOBT was positive, and pt denies any melena in the stool, he endorses changes in bowel movements with increased constipation which may be 2/2 iron supplementation that patient reports taking. He has a history of prior heavy drinking, but does not consume etoh any more. He does have cirrhosis on imaging findings, but no hx of varicieal bleeding. He denies hx of heavy nsaid use. Dx NPO pending EGD Tx transfusing 1 unit PRBC Transfuse if <8, Goal >8 given CABG f/u post transfusion h and h No NSAIDS Hyperkalemia Prerenal KOLBY HTN T2DM ?poorly controlled L Hallux nonheeling wound concerning for osteomyelitis BPH - as per primary team Plan discussed with Dr. Gerardo Richmond MD PGY1 Attending Provider Attestation/Addendum Patient evaluated laboratory data reviewed Imaging studies reviewed Spoke with the family Consent obtained for fiberoptic esophagogastroduodenoscopy with possible biopsy possible therapeutic intervention under intravenous moderate sedation If EGD negative and does not fully explain the hemoglobin 6.5 g we will consider doing a fiberoptic colonoscopy prior to discharge Thank you very much for the opportunity to participate in care of this
--- NOTE | 2025-02-11 10:05 | XR_ITS ---
Examination: Arterial duplex lower extremity study. Date and time of exam: February 11, 2025, 1038 hours INDICATIONS: non healing toe wound 3 months Findings: Duplex sonographic imaging of the lower extremity arteries using B-mode/Smith scale imaging and Doppler spectral analysis and color flow. Ankle brachial indices have been recorded. Right common femoral artery demonstrates triphasic flow. Right superficial femoral artery demonstrates triphasic flow. Right popliteal artery demonstrates triphasic flow. Right posterior tibial artery demonstrated biphasic flow. Right ankle/brachial index is 1.0. Left common femoral artery demonstrates triphasic flow. Left superficial femoral artery demonstrates triphasic flow. Left popliteal artery demonstrates triphasic flow. Left posterior tibial artery demonstrated monophasic flow. Left ankle/brachial index is 1.2. Impression: Suspicious for peripheral obstructive arterial disease in the trifurcation arteries below the knees bilaterally Consider correlation with CTA abdominal aorta iliofemoral runoff post intravenous contrast
--- NOTE | 2025-02-11 10:17 | PC.SS ---
Patient Bran Trammell is a 74 Year old male admitted for Upper GI Bleed. SS met with patient at bedside to discuss discharge plan and verify demographic information. Patient reports he lives at home with his , Cornelia Trammell who he reports is his surrogate decision maker, [phone]. Patient reports he does not utilize any source of DME to assist with ambulation. Patient is independent with all ADLs. Choice of pharmacy is [facility]. PCP is Ever Sauer. At time of discharge patient will discharge home, will provide transportation Discharge Plan:Home Next of kin:, Cornelia Trammell
--- NOTE | 2025-02-11 10:42 | PC.SS ---
SS follow up note; Dr. Clark consulting. HMG being monitored.
--- NOTE | 2025-02-11 11:43 | ESPR_ITS ---
<Statement entered by Manuel Escobar MD - 02/11/25 19:12> I saw and examined patient personally and supervised PGY 1 resident, Dr. Henson with formulating a management plan. I agree with the documentation with the exceptions as listed below. 74-year-old male with past medical history of hypertension, hyperlipidemia, diabetes mellitus type 2, coronary artery disease status post CABG x 3 (2011) who presented to the ED on 02/11/2025 due to vomiting and abdominal pain, admitted for GI bleed workup. Problem list: 1. Acute blood loss anemia secondary to GI bleed for investigation 2. Acute kidney injury, likely prerenal secondary to hypovolemia ? resolving 3. Hyperkalemia ? K 5.6 4. Left great toe osteomyelitis 5. Peripheral arterial disease 6. NIDDM type II 7. CAD s/p CABG 8. Primary hypertension 9. Hyperlipidemia According to the patient he had previous episode of melena and coffee-ground emesis in the past most recently being admitted to [facility] a few weeks ago [cannot recall exactly when.] He stated that he received 1 unit PRBC and was subequently discharged without endoscopy. This morning his hemoglobin was 6.8 and 1 unit PRBC was ordered for transfusion. Patient's Cr also improved to 1.4 from 1.7 on admission. GI, Dr. Carrillo was consulted, who advised to continue Protonix 40 mg IV twice daily and keep patient n.p.o. for EGD later today. On exam patient has dry appearing ulcer on the left great toe with minimal serous drainage. Absent dorsalis pedis and posterior tibial pulses on the left. Arterial duplex was positive for PAD with monophasic flow of the left posterior tibial artery. Toe x-ray was also positive for early osteomyelitis of distal left first digit, marked soft tissue swelling. General surgery was consulted and noted to continue with antibiotic treatment. Also recommended for follow-up with his general passenger agent as outpatient. For his great toe osteomyelitis patient is on Ceftriaxone 2g IV daily pending blood culture results. Plan of care discussed with Attending Dr. Mike Escobar MD PGY 2 Disclaimer: This note was dictated by speech recognition. Minor errors in glass technician/installer may be present due to voice recognition software. Documentation for date of: 02/11/25 Subjective Subjective Interval history: Mr Trammell is a 74 yom with a h/o CAD s/p CABG x3, HTN, HLD, non-insulin dependent DM, who presented to the ED on 02/11/2025 with abdominal pain and non- bloody emesis, found to be anemic at 7.3, FOBT+ and admitted for GI bleed workup. He's had the abdominal pain for about 3 days, vomited yesterday, mostly food particulate, denies blood or coffee-ground emesis. He states that he hasn't been able to keep food or drink down since yesterday. He's had episodes of abdominal pain and vomiting before, and he also has been hospitalized for anemia requiring blood transfusions. He denies undergoing upper or lower endoscopy in the past. He denies fever, fainting, chest pain, palpitations, dyspnea, diarrhea, or constipation. In the ED, he was found to have an KOLBY, which demonstrated some improvement after 2L LR. Was hyperkalemic and given hyperkalemia coctail in the ED. This was still persistent this morning at 5.7 so the patient was given another dose of nebulized albuterol and kayexalate. -Hgb was 6.8 so type and screen and PRBCs ordered. -GI consulted -Foot wound noted on left great toe, ESR 53, X-ray showing possible OM. Gen surg consulted, deemed this is unlikely osteomyelitis. Duplex artery US show possible PAD. - ceftriaxone ordered for possible soft tissue infection. 02/11/2025: This am patient seen and examined at bedside. Reports no further episodes of nausea or vomiting. Denies any melena. Exam Vital Signs Temp Pulse Resp BP Pulse Ox O2 Del Method 96.9 F 61 16 106/66 100 Room Air 02/11/25 08:00 02/11/25 09:14 02/11/25 09:14 02/11/25 08:00 02/11/25 09:14 02/11/25 04:00 Narrative Exam General: This is an elderly, pleasant, conversation gentleman, no acute distress. HEENT: Mucosa moist. No oropharyngeal lesions. Pupils are equal and reactive to light bilaterally. Cardiovascular: Normal S1 and S2. Regular rate and rhythm. Subtle flow murmur appreciated. DP pulse diminished on the left foot, popliteal pulse intact on the left. Respiratory: Clear to auscultation bilaterally without wheezes or crackles. Abdomen: Soft, non distended, very mild LLQ tenderness. Skin: Dry, some bruising noted on the arms. Musculoskeletal: No gross injuries. Able to move all 4 extremities. Non edematous lower extremities. Left great toe has dry eschar at the tip with proximal erythema extending to the base of the phalanx. No purulent material noted. Neuro: Alert and oriented x3. No focal neuro deficits. Intact sensation of the feet bilaterally. Psych: Normal affect and mood Objective Labs 02/11/25 16:34 02/11/25 16:34 Labs: Laboratory Results - last 24 hr 02/10/25 02/10/25 02/11/25 18:55 19:17 01:33 WBC 14.2 H RBC 2.28 L Hgb 7.3 L Hct 21.7 L* MCV 95 MCH 32.0 MCHC 33.6 RDW Std Deviation 50.2 H Plt Count 349 Neut % (Auto) 85 H Lymph % (Auto) 10 [place] % (Auto) 4 Eos % (Auto) 1 Baso % (Auto) 0 Neut # (Auto) 12.1 H Lymph # (Auto) 1.3 [place] # (Auto) 0.6 Eos # (Auto) 0.1 Baso # (Auto) 0.0 Immature Gran # (Auto) 0.07 H Absolute Nucleated RBC 0.00 Immature Gran % 1 H Nucleated RBC % 0 ESR 52 H Sodium 136 Potassium 5.9 H Chloride 102 Carbon Dioxide 25.6 Anion Gap 8 BUN 28 H Creatinine 1.7 H Estim Creat Clear Calc 34.6 L eGFR 42 L BUN/Creatinine Ratio [address] Glu mg/dL Hemoglobin A1c Calculated Osmolality 283 Calcium 8.7 Corrected Calcium 8.9 Magnesium Total Bilirubin 0.2 L AST 17 ALT 21 Alkaline Phosphatase 101 Troponin I Cancelled < 0.020 C-Reactive Prot, Quant 15.2 H Total Protein 6.0 Albumin 3.8 Globulin 2.2 L Albumin/Globulin Ratio 1.7 Lipase 37 Procalcitonin Ur Collection Type Clean Catch Urine Color Lt-Yellow Urine Clarity Clear Urine pH 6.5 Ur Specific [place] 1.023 Urine Protein Trace Urine Glucose (UA) 4+ A Urine Ketones Negative Urine Blood Negative Urine Nitrite Negative Urine Bilirubin Negative Urine Urobilinogen (Auto) Negative Ur Leukocyte Esterase Negative Urine RBC 2 Urine WBC < 1 Ur Squamous Epith Cells < 1 Urine Bacteria None Ur Culture Indicated? Not Indicated Blood Type O Positive Antibody Screen NEGATIVE Crossmatch See Detail Blood Bank Wristband ID Yes 02/11/25 06:40 WBC 13.5 H RBC 2.16 L Hgb 6.8 L* Hct 20.5 L* MCV 95 MCH 31.5 MCHC 33.2 RDW Std Deviation 50.2 H Plt Count 348 Neut % (Auto) 82 H Lymph % (Auto) 12 [place] % (Auto) 5 Eos % (Auto) 0 Baso % (Auto) 0 Neut # (Auto) 11.1 H Lymph # (Auto) 1.6 [place] # (Auto) 0.7 Eos # (Auto) 0.0 Baso # (Auto) 0.0 Immature Gran # (Auto) 0.08 H Absolute Nucleated RBC 0.00 Immature Gran % 1 H Nucleated RBC % 0 ESR Sodium 137 Potassium 5.7 H Chloride 107 Carbon Dioxide 23.0 Anion Gap 7 BUN 28 H Creatinine 1.4 H Estim Creat Clear Calc 34.5 L eGFR 53 L BUN/Creatinine Ratio 20 [address]ucose [address] Glu mg/dL Cancelled Hemoglobin A1c Cancelled Calculated Osmolality 280 Calcium 8.3 Corrected Calcium 8.7 Magnesium 2.3 Total Bilirubin 0.2 L AST 15 ALT 19 Alkaline Phosphatase 94 Troponin I C-Reactive Prot, Quant Total Protein 5.4 L Albumin 3.5 Globulin 1.9 L Albumin/Globulin Ratio 1.8 Lipase Procalcitonin 0.16 Ur Collection Type Urine Color Urine Clarity Urine pH Ur Specific [place] Urine Protein Urine Glucose (UA) Urine Ketones Urine Blood Urine Nitrite Urine Bilirubin Urine Urobilinogen (Auto) Ur Leukocyte Esterase Urine RBC Urine WBC Ur Squamous Epith Cells Urine Bacteria Ur Culture Indicated? Blood Type Antibody Screen Crossmatch Blood Bank Wristband ID Quality Measures Quality Measures none Advance care planning discussed with:: patient Assessment & Plan Assessment Current Active Medications: Generic Name Dose Route Start Last Admin Trade Name Freq PRN Reason Stop Dose Admin Acetaminophen 650 mg 02/11/25 00:03 Acetaminophen 325 Mg Tablet PO 03/13/25 00:02 Q6H PRN Fever >100.4 Acetaminophen 650 mg 02/11/25 00:03 02/11/25 05:58 Acetaminophen 325 Mg Tablet PO 03/13/25 00:02 650 mg Q6H PRN Administration PAIN SCALE 1-3 (mild Dextrose 25 ml 02/11/25 00:14 Dextrose 50%-Water Inj 50 Ml Syringe IV 03/13/25 00:13 Q15MIN PRN BG 50-70 responsive npo pt Dextrose 50 ml 02/11/25 00:14 Dextrose 50%-Water Inj 50 Ml Syringe IV 03/13/25 00:13 Q15MIN PRN BG <50 OR BG <70 & pt unresponsive Glucagon 1 mg 02/11/25 00:14 Glucagon Inj 1 Mg Vial IM Q15MIN PRN BG <70, and no IV access Lactated Ringer's 1,000 mls @ 60 mls/hr 02/11/25 00:27 02/11/25 00:40 Lactated Ringers IV 02/11/25 17:06 60 mls/hr .[id number] MURIEL Administration Ceftriaxone Sodium 2 gm/ 50 mls @ 100 mls/hr 02/11/25 07:45 02/11/25 07:57 Sodium Chloride IV 02/18/25 07:44 100 mls/hr QDAY MURIEL Administration Insulin Human Lispro 0 unit 02/11/25 07:30 02/11/25 07:47 Insulin Lispro (Admelog) 1 Unit/0.01 Ml Unit SC 03/13/25 07:29 Not Given AC MURIEL Protocol Ondansetron HCl 4 mg 02/11/25 00:03 Ondansetron Inj 2 Mg/Ml Inj 2 Ml IVP 03/13/25 00:02 Q6H PRN NAUSEA OR VOMITING Protocol Pantoprazole Sodium 40 mg 02/11/25 09:00 02/11/25 08:18 Pantoprazole Inj 40 Mg Vial IVP 03/13/25 08:59 40 mg BID MURIEL Administration Sennosides 1 tab 02/11/25 09:00 02/11/25 08:18 Senna Tablet PO 03/13/25 08:59 1 tab QDAY MURIEL Administration Protocol Sodium Chloride 3 ml 02/10/25 21:42 02/10/25 21:58 Sodium Chloride Rt [place] 0.9% 3 Ml Nebu INH 03/12/25 21:41 3 ml PRN PRN Administration SOLN Tamsulosin HCl 0.4 mg 02/11/25 09:00 02/11/25 08:18 Tamsulosin Hcl 0.4 Mg Capsule PO 03/13/25 08:59 0.4 mg On Hold: 02/11/25 09:00 QDAY MURIEL Administration Plan 74-year-old male with past medical history of hypertension, hyperlipidemia, diabetes mellitus type 2, coronary artery disease status post CABG x 3 (2011) who presented to the ED on 02/11/2025 due to vomiting and abdominal pain, admitted for GI bleed workup. #Acute blood loss anemia #Possible GI Bleed Patient presenting with abdominal pain, non-bloody emesis, denies melena or bloody stools or NSAID use. Some abdominal tenderness in the LLQ. Hgb 7.[address] notable for possible cirrhosis or primary hepatocellular disease. Has been hospitalized for anemia at [facility] in the past, received blood transfusion, but denies having ever had an endoscopy. Differential includes peptic ulcers, possible variceole bleed based on CT findings, versus diverticulosis or colonic malignancy. ? Protonix 40mg IV twice daily ? GI consulted, appreciate recs - NPO for now. -Blood transfusion today, F/U H&H. ? Transfuse if hemoglobin less than 7 #KOLBY #Hyperkalemia Prerenal versus postrenal CT shows distended bladder, though patient hasn't had poor oral intake due to vomiting and abdominal pain. Creatinine 1.7, potassium 5.9 In the ED patient received hyperkalemia cocktail and 2 L of IV fluids ? [place] catheter placed and DC on 02/11. ? on IVF at 60 mL/h - Given more albuterol and kayexalate. ? Avoid nephrotoxins ? Renally dose medications ? F/U renal renal panel #DM #Diabetic Toe Ulcer vs arterial ulcer #Soft tissue infection Has wound on the tip of the left great toe, is dry, appears almost like an eschar. The surrounding more proximal tissue is erythematous but limited to the phalanx. WBC 13, ESR and CRP are 52 and 15.2 respectively. X-ray of toe read as possible early osteomyelitis. General surgery consulted, deemed that this does not look concerning for osteomyelitis. -On ceftriaxone for soft tissue infection, 02/11- -sliding scale -holding jiardiance and metformin for now. #possible PAD Diminshed DP pulse on the left foot. Popliteal pulse intact. Arterial/Peripheral duplex notable for findings suspicious for peripheral obstructive arterial disease in the trifurcation arteries below the knee. Ankle brachial index 1.2. May be contributing to his foot wound, noted above. -Can consider starting cilostazol outpatient. #CAD s/p CABGx3 #HTN -Holding diltiazem in the setting of GI hemorrhage. #HLD - restarting home atorvastatin tonight. Health Maintenance: DVT prophylaxis: SCDs Diet: NPO [place]: Placed and DC on 02/11 Lines: PIV CODE STATUS: Full code Disposition: Pending GI Workup. Patient's plan and care discussed with my attending, Dr. Mckeon and my senior Dr Luz Henson DO PGY-1 ([facility] Resident) Attending Provider Attestation/Addendum I have discussed and was present for the essential components of the history, physical examination, diagnosis, and treatment plan with the resident. I agree with the patient's care as documented by the resident and amended herein by me. Aniket Mckeon DO. Although this document has been carefully reviewed, there may still be some phonetic and other typographical errors. These errors are purely grammatical due to imperfections in the software program and should not be construed in any way to compromise the substance of the patient's medical care during this visit. Patient seen and evaluated this AM. In short, 74-year-old male with significant past medical history of hypertension, hyperlipidemia, DM2, CAD status post CABG with 3 bypass grafts in 2011, presented to the ED on 02/11 due to nausea, vomiting and abdominal pain, subsequently admitted for GI bleed. No acute events overnight, vital signs stable, patient afebrile, hemoglobin still low this morning at 6.8, transfused, potassium coming down, however still elevated to 5.7, creatinine also coming down to 1.4 today. Gastroenterology was consulted considering the patient was FOBT positive in setting of anemia, EGD scheduled. Patient also noted to have appears to be a diabetic foot ulcer on his left great toe, it is dry does have eschar, x-ray demonstrating early osteomyelitis in the distal end of the phalanx. We did order an arterial Doppler ultrasound which was suspicious for peripheral obstructive arterial disease in the trifurcation arteries below the knees bilaterally. We did consult general surgery who did not recommend any debridement or surgical intervention at this time, the patient does follow-up with podiatry in the outpatient setting. We will continue ceftriaxone 2 g daily for now for antibiotic coverage for the osteomyelitis., Can likely be discharged on oral antibiotics for the osteo at time of discharge. Appreciate specialist recommendations will continue to monitor closely while he is here.
[2025-02-11] MEDS: SOD POLYSTYRENE SULFON SUSP 15 GM/60 ML BTL PO (12:04)
--- NOTE | 2025-02-11 12:30 | PD.SURCONS ---
HPI Consult details Consult date: 02/11/25 Reason for consultation narrative: Patient was seen in consultation for possible osteomyelitis of the left great toe Meds Home Medications and Allergies Home Medications ?Medication ?Instructions ?Recorded ?Confirmed ?Type metformin 1,000 mg tablet 500 mg PO BID #0 tabs 02/16/15 02/11/25 History (Glucophage) atorvastatin 80 mg tablet 80 mg PO HS 02/11/25 02/11/25 History diltiazem HCl 180 mg 180 mg PO Q12H 02/11/25 02/11/25 History capsule,extended release 24 hr empagliflozin 25 mg tablet 25 mg PO QDAY 02/11/25 02/11/25 History (Jardiance) gabapentin 100 mg capsule 100 mg PO Q12H 02/11/25 02/11/25 History sulfamethoxazole 800 1 tab PO QDAY 02/11/25 02/11/25 History mg-trimethoprim 160 mg tablet tamsulosin 0.4 mg capsule 0.4 mg PO QDAY 02/11/25 02/11/25 History Allergies Allergy/AdvReac Type Severity Reaction Status Date / Time NKA* Allergy Uncoded 02/10/25 18:07 Exam Vital Signs Temp Pulse Resp BP Pulse Ox O2 Del Method 96.9 F 61 16 115/59 L 99 Room Air 02/11/25 12:14 02/11/25 09:14 02/11/25 12:14 02/11/25 12:14 02/11/25 12:14 02/11/25 04:00 Assessment & Plan Additional Assessment Additional comments: Impression: No evidence of severe osteomyelitis of the distal phalanx. Patient has callus and some inflammation over the great toe Plan Plan: Patient does not require any amputation or treatment for osteomyelitis. He will require IV antibiotics for control of the soft tissue infection on the toe. Patient is seen by promotions executive producer every week in [place] and he has been trimming his callus at the tip of the great toe. I suggest we let him follow-up with him.
[2025-02-11 14:31] LABS: Path Review Blood Smear Sent to Pathologist
[2025-02-11] MEDS: NA SU/NAHCO3/KC/PEG (Golytely) 4,000 ML BTL 4000 ML PO (16:31)
[2025-02-11 16:47] LABS: Hematocrit 25.8 % (41.0-53.0)
[2025-02-11 17:06] LABS: Albumin, Serum 3.4 gm/dL (3.4-4.8); Anion Gap 9 (7-16); BUN/Creatinine Ratio 15 Ratio (12-20); Blood Urea Nitrogen 20 mg/dL (9-23); Calcium 8.2 mg/dL (8.3-10.6); Calcium (Corrected) 8.7 mg/dL (8.5-10.1); Carbon Dioxide 21.7 mMol/L (20.0-31.0); Chloride 109 mMol/L (98-107); Creatinine (Component) 1.3 mg/dL (0.6-1.3); Estimated Creatinine Clearance 37.2 mL/min (>60); Glucose 92 mg/dL (74-106); Osmolality,Calculated 282 (275-295); Phosphorous 4.4 mg/dL (2.4-5.1); Potassium 5.7 mMol/L (3.4-5.1); Sodium 140 mMol/L (136-145); eGFR 58 See Note
[2025-02-11 17:07] LABS: Hemoglobin 8.7 g/dL (13.5-16.0)
[2025-02-11] MEDS: ALBUTEROL RT 2.5 MG/0.5 ML NEBU 10 MG INH (19:27)
[2025-02-11] MEDS: SODIUM CHLORIDE RT SOL 0.9% 3 ML NEBU INH (19:28)
[2025-02-11] MEDS: ATORVASTATIN CALCIUM 20 MG TABLET 80 MG PO (20:19)
[2025-02-12] VITALS (19 sets, daily range): BP systolic 139–196; BP diastolic 52–97; PULSE 55–74; RESP 12–19; TEMP 36–36.8; O2SAT 95–100; BMI 20.9
[2025-02-12 05:43] LABS: Basophils # (Auto) 0.0 Thou/mm3 (0.0-0.2); Basophils % (Auto) 0 % (0-2.5); Eosinophils # (Auto) 0.2 Thou/mm3 (0.0-0.5); Eosinophils % (Auto) 2 % (0-10); Hematocrit 25.0 % (41.0-53.0); Immature Granulocytes Auto 0.03 Thou/mm3 (0.00-0.00); Lymphocytes # (Auto) 2.4 Thou/mm3 (1.0-4.8); Lymphocytes % (Auto) 26 % (10-50); Mean Corpuscular HGB Conc 32.4 g/dl (31.0-37.0); Mean Corpuscular Hemoglobin 30.7 pg (25.0-35.0); Mean Corpuscular Volume 95 fL (80-100); Monocytes # (Auto) 0.5 Thou/mm3 (0.0-0.8); Monocytes % (Auto) 5 % (0-12); Neutrophils # (Auto) 6.4 Thou/mm3 (1.8-7.7); Neutrophils % (Auto) 67 % (37-80); Nucleated Red Blood Cell # 0.00 Thou/mm3 (0.00-0.00); Nucleated Red Blood Cell % 0 /100 WBC (0); Platelet Count 331 Thou/mm3 (140-440); RDW Standard Deviation 53.4 fL (35.1-43.9); Red Blood Count 2.64 Miln/mm3 (4.50-5.90); White Blood Count 9.5 Thou/mm3 (3.8-10.6)
[2025-02-12 05:50] LABS: Hemoglobin 8.1 g/dL (13.5-16.0)
[2025-02-12 05:51] LABS: INR 1.0 (0.9-1.3); Prothrombin Time 10.6 Seconds (9.0-12.2)
[2025-02-12 06:13] LABS: Alanine Aminotransferase 19 U/L (10-49); Albumin, Serum 3.3 gm/dL (3.4-4.8); Albumin/Globulin Ratio 1.6 (1.2-2.2); Alkaline Phosphatase 85 U/L (46-116); Anion Gap 6 (7-16); Aspartate Amino Transferase 15 U/L (0-34); BUN/Creatinine Ratio 15 Ratio (12-20); Bilirubin,Total 0.2 mg/dL (0.3-1.2); Blood Urea Nitrogen 18 mg/dL (9-23); Calcium 8.4 mg/dL (8.3-10.6); Calcium (Corrected) 9.0 mg/dL (8.5-10.1); Carbon Dioxide 24.7 mMol/L (20.0-31.0); Chloride 111 mMol/L (98-107); Creatinine (Component) 1.2 mg/dL (0.6-1.3); Estimated Creatinine Clearance 41.0 mL/min (>60); Globulin 2.1 gm/dL (2.3-3.5); Glucose 99 mg/dL (74-106); Magnesium 2.2 mg/dL (1.6-2.6); Osmolality,Calculated 285 (275-295); Phosphorous 3.7 mg/dL (2.4-5.1); Potassium 5.3 mMol/L (3.4-5.1); Sodium 142 mMol/L (136-145); Total Protein 5.4 gm/dL (5.7-8.2); eGFR > 60 See Note
[2025-02-12] MEDS: cefTRIAXone 2 GM in SODIUM CHLORIDE 0.9% (Popper) 50 ML IV (09:08)
--- NOTE | 2025-02-12 09:51 | ESPR_ITS ---
Documentation for date of: 02/12/25 No overnight events. Patient denied any overnight complains. Denied any blood in stool. Patient has tolerated Golyte well and denied hematochezia in stool while in the hospital. EGD overnight by town manager noted esophageal ulcers, non-bleeding gastric ulcers, and gastritits, biopsies obtained. Patient scheduled for colonoscopy later this evening. Given low suspicion for osteomyelitis, per surgery recommendations, continue to treat for soft tissue infection. Ceftriaxone reduced from 2 grams Ceftriaxone to 1 gram Ceftriaxone starting 02/12/2025. Plan to discharge within the next 24 hours. - The patient's plan was discussed with attending Dr. Francine French MD PGY2 Internal Medicine Subjective Subjective Interval history: Patient seen and examined bedside. Labs were reviewed, hemoglobin 8.1 (8.7) stabilizing, creatinine downtrending to 1.2 (1.3, 1.4). EGD performed yesterday, findings could not explain degree of anemia, plan for colonoscopy today. Dr. Resendez was consulted for patient toe ulceration and recommends IV abx and outpatient central sterile technician FUP. Patient reports having no symptoms, and no questions, results of the EGD were discussed. Exam Vital Signs Temp Pulse Resp BP Pulse Ox O2 Del Method O2 Flow Rate 96.8 F 63 18 152/72 H 97 Room Air 3 02/12/25 08:00 02/12/25 08:00 02/12/25 08:00 02/12/25 08:00 02/12/25 08:00 02/12/25 08:00 02/11/25 15:50 Narrative Exam General: This is an elderly, pleasant, conversation gentleman, no acute distress. HEENT: Mucosa moist. No oropharyngeal lesions. Pupils are equal and reactive to light bilaterally. Cardiovascular: Normal S1 and S2. Regular rate and rhythm. Subtle flow murmur appreciated. DP pulse diminished on the left foot, popliteal pulse intact on the left. Respiratory: Clear to auscultation bilaterally without wheezes or crackles. Abdomen: Soft, non distended, very mild LLQ tenderness. Skin: Dry, some bruising noted on the arms. Musculoskeletal: No gross injuries. Able to move all 4 extremities. Non edematous lower extremities. Left great toe has dry eschar at the tip with proximal erythema extending to the base of the phalanx. No purulent material noted. Neuro: Alert and oriented x3. No focal neuro deficits. Intact sensation of the feet bilaterally. Psych: Normal affect and mood Objective Labs 02/13/25 04:50 02/13/25 04:50 Labs: Laboratory Results - last 24 hr 02/11/25 02/11/25 02/11/25 01:33 06:40 16:34 WBC RBC Hgb 8.7 L D Hct 25.8 L MCV MCH MCHC RDW Std Deviation Plt Count Neut % (Auto) Lymph % (Auto) [place] % (Auto) Eos % (Auto) Baso % (Auto) Neut # (Auto) Lymph # (Auto) [place] # (Auto) Eos # (Auto) Baso # (Auto) Immature Gran # (Auto) Absolute Nucleated RBC Immature Gran % Nucleated RBC % Smear Path Review Sent to Pathologist PT INR Sodium 140 Potassium 5.7 H Chloride 109 H Carbon Dioxide 21.7 Anion Gap 9 BUN 20 Creatinine 1.3 Estim Creat Clear Calc 37.2 L eGFR 58 L BUN/Creatinine Ratio 15 Glucose 92 Calculated Osmolality 282 Calcium 8.2 L Corrected Calcium 8.7 Phosphorus 4.4 Magnesium Total Bilirubin AST ALT Alkaline Phosphatase Total Protein Albumin 3.4 Globulin Albumin/Globulin Ratio Blood Type O Positive Antibody Screen NEGATIVE Crossmatch See Detail Blood Bank Wristband ID Yes 02/12/25 04:57 WBC 9.5 RBC 2.64 L Hgb 8.1 L Hct 25.0 L MCV 95 MCH 30.7 MCHC 32.4 RDW Std Deviation 53.4 H Plt Count 331 Neut % (Auto) 67 Lymph % (Auto) 26 [place] % (Auto) 5 Eos % (Auto) 2 Baso % (Auto) 0 Neut # (Auto) 6.4 Lymph # (Auto) 2.4 [place] # (Auto) 0.5 Eos # (Auto) 0.2 Baso # (Auto) 0.0 Immature Gran # (Auto) 0.03 H Absolute Nucleated RBC 0.00 Immature Gran % 0 Nucleated RBC % 0 Smear Path Review PT 10.6 INR 1.0 Sodium 142 Potassium 5.3 H Chloride 111 H Carbon Dioxide 24.7 Anion Gap 6 L BUN 18 Creatinine 1.2 Estim Creat Clear Calc 41.0 L eGFR > 60 BUN/Creatinine Ratio 15 Glucose 99 Calculated Osmolality 285 Calcium 8.4 Corrected Calcium 9.0 Phosphorus 3.7 Magnesium 2.2 Total Bilirubin 0.2 L AST 15 ALT 19 Alkaline Phosphatase 85 Total Protein 5.4 L Albumin 3.3 L Globulin 2.1 L Albumin/Globulin Ratio 1.6 Blood Type Antibody Screen Crossmatch Blood Bank Wristband ID Quality Measures Quality Measures VTE prophylaxis Advance care planning discussed with:: other Assessment & Plan Assessment Current Active Medications: Generic Name Dose Route Start Last Admin Trade Name Freq PRN Reason Stop Dose Admin Acetaminophen 650 mg 02/11/25 00:03 Acetaminophen 325 Mg Tablet PO 03/13/25 00:02 Q6H PRN Fever >100.4 Acetaminophen 650 mg 02/11/25 00:03 02/11/25 05:58 Acetaminophen 325 Mg Tablet PO 03/13/25 00:02 650 mg Q6H PRN Administration PAIN SCALE 1-3 (mild Atorvastatin Calcium 80 mg 02/11/25 21:00 02/11/25 20:19 Atorvastatin Calcium 20 Mg Tablet PO 03/13/25 20:59 80 mg HS MURIEL Administration Dextrose 25 ml 02/11/25 00:14 Dextrose 50%-Water Inj 50 Ml Syringe IV 03/13/25 00:13 Q15MIN PRN BG 50-70 responsive npo pt Dextrose 50 ml 02/11/25 00:14 Dextrose 50%-Water Inj 50 Ml Syringe IV 03/13/25 00:13 Q15MIN PRN BG <50 OR BG <70 & pt unresponsive Glucagon 1 mg 02/11/25 00:14 Glucagon Inj 1 Mg Vial IM Q15MIN PRN BG <70, and no IV access Ceftriaxone Sodium 2 gm/ 50 mls @ 100 mls/hr 02/11/25 07:45 02/12/25 09:08 Sodium Chloride IV 02/18/25 07:44 100 mls/hr QDAY MURIEL Administration Insulin Human Lispro 0 unit 02/11/25 07:30 02/12/25 08:01 Insulin Lispro (Admelog) 1 Unit/0.01 Ml Unit SC 03/13/25 07:29 Not Given AC MURIEL Protocol Ondansetron HCl 4 mg 02/11/25 00:03 Ondansetron Inj 2 Mg/Ml Inj 2 Ml IVP 03/13/25 00:02 Q6H PRN NAUSEA OR VOMITING Protocol Pantoprazole Sodium 40 mg 02/11/25 09:00 02/12/25 09:09 Pantoprazole Inj 40 Mg Vial IVP 03/13/25 08:59 40 mg BID MURIEL Administration Sennosides 1 tab 02/11/25 09:00 02/12/25 09:08 Senna Tablet PO 03/13/25 08:59 1 tab QDAY MURIEL Administration Protocol Sodium Chloride 3 ml 02/10/25 21:42 02/11/25 19:28 Sodium Chloride Rt [place] 0.9% 3 Ml Nebu INH 03/12/25 21:41 3 ml PRN PRN Administration SOLN Tamsulosin HCl 0.4 mg 02/11/25 09:00 02/11/25 08:18 Tamsulosin Hcl 0.4 Mg Capsule PO 03/13/25 08:59 0.4 mg On Hold: 02/11/25 09:00 QDAY MURIEL Administration Plan 74-year-old male with past medical history of hypertension, hyperlipidemia, diabetes mellitus type 2, coronary artery disease status post CABG x 3 (2011) who presented to the ED on 02/11/2025 due to vomiting and abdominal pain, admitted for GI bleed workup. #Acute blood loss anemia #Esophageal Ulcers #Non-bleeding gastric ulcers #Possible GI Bleed Patient presenting with abdominal pain, non-bloody emesis, denies melena or bloody stools or NSAID use. Some abdominal tenderness in the LLQ. Hgb 7.[address] notable for possible cirrhosis or primary hepatocellular disease. Has been hospitalized for anemia at [facility] in the past, received blood transfusion, but denies having ever had an endoscopy. Differential includes peptic ulcers, possible variceole bleed based on CT findings, versus diverticulosis or colonic malignancy. EGD does not explain degree of anemia planning for colonoscopy today. EGD: esophageal ulcers, non-bleeding gastric ulcers with a clean ulcer based (Kody Class 3), gastritis, characterized by erythema, bx in gastric antrum and in the cardia, normal second portion of the duodenum. ? Protonix 40mg IV twice daily ? GI consulted, appreciate recs - CLD and clears for colonoscopy today -Blood transfusion. 1 unit pRBCs given ? Transfuse if hemoglobin less than 7 - Ferumoxytol 510 mg IV x1 - EPO 10,000 unit Inj x1 #KOLBY - Improving #Hyperkalemia - Improving Prerenal due to blood loss or medication (bactrim, jardiance, metformin). Not intrinsic b/c no RBC on urinalysis. Not post renal b/c no hydronephrosis on imaging. CT shows distended bladder, though patient hasn't had poor oral intake due to vomiting and abdominal pain. Creatinine 1.7 --> 1.2, potassium 5.9 --> 5.3 In the ED patient received hyperkalemia cocktail and 2 L of IV fluids ? [place] catheter placed and DC on 02/11. ? on IVF at 60 mL/h - Given more albuterol and kayexalate --> DC'd ? Avoid nephrotoxins ? Renally dose medications ? F/U renal renal panel #DM #Diabetic Toe Ulcer vs arterial ulcer #Soft tissue infection Has wound on the tip of the left great toe, is dry, appears almost like an eschar. The surrounding more proximal tissue is erythematous but limited to the phalanx. WBC 13, ESR and CRP are 52 and 15.2 respectively. X-ray of toe read as possible early osteomyelitis. General surgery consulted, deemed that this does not look concerning for osteomyelitis. -On ceftriaxone 2q IV QD for soft tissue infection, 02/11- -sliding scale -holding jardiance and metformin for now. #possible PAD Diminshed DP pulse on the left foot. Popliteal pulse intact. Arterial/Peripheral duplex notable for findings suspicious for peripheral obstructive arterial disease in the trifurcation arteries below the knee. Ankle brachial index 1.2. May be contributing to his foot wound, noted above. -Can consider starting cilostazol outpatient. -Lipid panel AM #CAD s/p CABGx3 #HTN -Holding diltiazem in the setting of GI hemorrhage. #HLD - Atorvastatin 80mg PO QD Health Maintenance: DVT prophylaxis: SCDs Diet: CLD/Golytely [place]: none Lines: PIV CODE STATUS: Full code Disposition: Pending GI Workup --> colonoscopy Patient's plan and care discussed with my attending, Dr. Escamilla and my senior Dr Manolo Littlejohn MD PGY-1 IM Attending Provider Attestation/Addendum Patient seen and examined with resident physician Dr. Littlejohn/Dr. French. note reviewed, agree with findings and recommendations.
[2025-02-12] MEDS: EPOETIN ALFA-EPBX INJ 10,000 UNIT/ML VIAL (NON-ESRD) 10000 UNIT SC (11:03)
[2025-02-12] MEDS: ferumoxytoL (NON-ESRD) 510 MG in SODIUM CHLORIDE 0.9% 100 ML 234 MG IV (11:03)
[2025-02-12] MEDS: NA SU/NAHCO3/KC/PEG (Golytely) 4,000 ML BTL 4000 ML PO (11:55)
--- NOTE | 2025-02-12 15:27 | PC.SS ---
SW follow-up note: Patient is pending a colonoscopy; per ortho, no intervention?patient to f/u with his dependency case manager outpatient.
--- NOTE | 2025-02-12 18:25 | SUR.PHASEI ---
1825: pt receoved from OR via mariella. received report from RODRIGO Ramires. pt alert and oriented. denies any pain or discomfort. no s/s of resp. distress or discomfort.
--- NOTE | 2025-02-12 18:57 | SUR.PHASEI ---
report given to RODRIGO Ramon.
--- NOTE | 2025-02-12 19:01 | SUR.PHASEI ---
1900: transfer back to room 268. pt alert and oriented. no c/o pain or discomfort. no s/s of resp. distress or discomfort.
--- NOTE | 2025-02-12 19:39 | PC.NURSE ---
CLUB LOUNGE ATTENDANT alerted about pts Bp of 171/75. MD Norris was informed about pts current blood pressure and blood pressure during the day. She stated she would look at his chart and add orders as needed.
[2025-02-12] MEDS: ATORVASTATIN CALCIUM 20 MG TABLET 80 MG PO (21:27)
[2025-02-13] VITALS (9 sets, daily range): BP systolic 109–161; BP diastolic 64–77; PULSE 62–79; RESP 12–17; TEMP 36.1–36.4; O2SAT 91–98
[2025-02-13 05:28] LABS: Basophils # (Auto) 0.1 Thou/mm3 (0.0-0.2); Basophils % (Auto) 1 % (0-2.5); Eosinophils # (Auto) 0.2 Thou/mm3 (0.0-0.5); Eosinophils % (Auto) 3 % (0-10); Hematocrit 27.3 % (41.0-53.0); Hemoglobin 8.9 g/dL (13.5-16.0); Immature Granulocytes Auto 0.07 Thou/mm3 (0.00-0.00); Lymphocytes # (Auto) 2.6 Thou/mm3 (1.0-4.8); Lymphocytes % (Auto) 38 % (10-50); Mean Corpuscular HGB Conc 32.6 g/dl (31.0-37.0); Mean Corpuscular Hemoglobin 30.9 pg (25.0-35.0); Mean Corpuscular Volume 95 fL (80-100); Monocytes # (Auto) 0.5 Thou/mm3 (0.0-0.8); Monocytes % (Auto) 7 % (0-12); Neutrophils # (Auto) 3.4 Thou/mm3 (1.8-7.7); Neutrophils % (Auto) 50 % (37-80); Nucleated Red Blood Cell # 0.00 Thou/mm3 (0.00-0.00); Nucleated Red Blood Cell % 0 /100 WBC (0); Platelet Count 341 Thou/mm3 (140-440); RDW Standard Deviation 51.5 fL (35.1-43.9); Red Blood Count 2.88 Miln/mm3 (4.50-5.90); White Blood Count 6.9 Thou/mm3 (3.8-10.6)
[2025-02-13 05:40] LABS: Partial Thromboplastin Time 32.8 Seconds (22.0-36.0)
[2025-02-13 06:00] LABS: Alanine Aminotransferase 35 U/L (10-49); Albumin, Serum 3.6 gm/dL (3.4-4.8); Albumin/Globulin Ratio 1.6 (1.2-2.2); Alkaline Phosphatase 93 U/L (46-116); Anion Gap 10 (7-16); Aspartate Amino Transferase 28 U/L (0-34); BUN/Creatinine Ratio 9 Ratio (12-20); Bilirubin,Total 0.2 mg/dL (0.3-1.2); Blood Urea Nitrogen 10 mg/dL (9-23); Calcium 8.8 mg/dL (8.3-10.6); Calcium (Corrected) 9.1 mg/dL (8.5-10.1); Carbon Dioxide 22.0 mMol/L (20.0-31.0); Cardiac Risk Estimate 2.1 RATIO (4.0-6.7); Chloride 110 mMol/L (98-107); Cholesterol 94 mg/dL (132-200); Creatinine (Component) 1.1 mg/dL (0.6-1.3); Estimated Creatinine Clearance 44.0 mL/min (>60); Globulin 2.2 gm/dL (2.3-3.5); Glucose 133 mg/dL (74-106); HDL Cholesterol 44 mg/dL (40-60); LDL Cholesterol,Calculated 33 mg/dL (0-130); Magnesium 1.7 mg/dL (1.6-2.6); Osmolality,Calculated 284 (275-295); Phosphorous 3.3 mg/dL (2.4-5.1); Potassium 4.5 mMol/L (3.4-5.1); Sodium 142 mMol/L (136-145); Total Protein 5.8 gm/dL (5.7-8.2); Triglycerides 84 mg/dL (30-150); eGFR > 60 See Note
[2025-02-13] MEDS: ONDANSETRON INJ 2 MG/ML INJ 2 ML 4 MG IVP (06:43)
--- NOTE | 2025-02-13 08:22 | ECHO_ITS ---
Transthoracic Echo Report Ht (in): 62 Wt (lb): 117 Exam Location: Echo Lab Status: Inpatient Densitometrist: Aissatou Parks Indications: Procedure Performed: BP: 145 / 77 HR: 62 Rhythm: Sinus Technical Quality: Fair MEASUREMENTS (Male / Female) Normal Values 2D ECHO LV Diastolic Diameter PLAX 5.1 cm 4.2 - 5.9 / 3.9 - 5.3 cm LV Systolic Diameter PLAX 3.2 cm IVS Diastolic Thickness 0.9 cm 0.6 - 1.0 / 0.6 - 0.9 cm LVPW Diastolic Thickness 0.8 cm 0.6 - 1.0 / 0.6 - 0.9 cm LV Relative Wall Thickness 0.3 LVOT Diameter 2.1 cm LV Ejection Fraction MOD BP 64.8 % >= 55 % LV Cardiac Index MOD BP 2173.5 cm?/min?m? LV Ejection Fraction MOD 4C 69.0 % LV Cardiac Index MOD 4C 2425.4 cm?/min?m? LV Ejection Fraction 4C AL 69.2 % LV Cardiac Index 4C AL 2509.9 cm?/min?m? LV Ejection Fraction MOD 2C 59.7 % LV Cardiac Index MOD 2C 1791.6 cm?/min?m? LV Ejection Fraction 2C AL 61.1 % LV Cardiac Index 2C AL 1861.9 cm?/min?m? LA Volume Index 27.9 cm?/m? 16 - 28 cm?/m? M-MODE Aortic Root Diameter MM 2.8 cm LA Systolic Diameter MM 4.4 cm LA Ao Ratio MM 1.6 AV Cusp Separation MM 1.8 cm DOPPLER AV Peak Velocity 131.0 cm/s AV Peak Gradient 6.9 mmHg AV Mean Gradient 3.0 mmHg AV Velocity Time Integral 25.6 cm LVOT Peak Velocity 86.5 cm/s LVOT Peak Gradient 3.0 mmHg LVOT Velocity Time Integral 22.7 cm LVOT Cardiac Index 3194.2 cm?/min?m? AV Area Cont Eq vti 3.1 cm? AV Area Cont Eq pk 2.3 cm? MV Area PHT 3.2 cm? MR Peak Velocity 354.0 cm/s MR Peak Gradient 50.1 mmHg Mitral E Point Velocity 77.6 cm/s Mitral A Point Velocity 101.0 cm/s Mitral E to A Ratio 0.8 LV E' Lateral Velocity 11.6 cm/s Mitral E to LV E' Lateral Ratio 6.7 LV E' Septal Velocity 4.6 cm/s Mitral E to LV E' Septal Ratio 17.0 TR Peak Velocity 230.7 cm/s TR Peak Gradient 21.3 mmHg PV Peak Velocity 113.0 cm/s PV Peak Gradient 5.1 mmHg FINDINGS Left Ventricle Normal left ventricular size, wall thickness, systolic function with no obvious regional wall motion abnormalities. There is grade I diastolic dysfunction of the left ventricle (impaired relaxation pattern). The ejection fraction is visually estimated at 60-65%. Right Ventricle The right ventricle is normal in size and systolic function. Left Atrium The left atrium is normal by two-dimensional, color flow and Doppler imaging with no structural abnormalities, no thrombus formation present. Right Atrium The right atrium is normal by two-dimensional imaging, color flow and Doppler imaging with no structural abnormalities, no thrombus formation present. Atrial Septum The interatrial septum appears normal with no evidence of a shunt. Aorta The aorta is normal by two-dimensional, color flow and Doppler interrogation. Mitral Valve The mitral valve is normal by two-dimensional, color flow and Doppler interrogation. Trace mitral regurgitation. Aortic Valve The aortic valve is trileaflet and normal by two-dimensional, color flow and Doppler interrogation. Trace aortic valve regurgitation. Tricuspid Valve The tricuspid valve is normal by two-dimensional, color flow and Doppler interrogation. There is mild tricuspid valve regurgitation. Pulmonic Valve The pulmonic valve is not well visualized. There is no significant pulmonic valve regurgitation. Vessels The pulmonary artery appears normal. The inferior vena cava pulmonary and hepatic veins appear normal. Pericardium The pericardium is normal by two-dimensional imaging. There is no significant pericardial effusion. CONCLUSIONS Indication: Assess valvular function Normal LV size and wall thickness. There is grade I diastolic dysfunction. Estimated EF at 60-65%. The RV is normal in size and systolic function. RVSP 30 mm hg. Trace MR and AI. Mild TR. There is no pericardial effusion. Angelito Zhu (Electronically Signed) Final Date: 13 February 2025 19:37
[2025-02-13] MEDS: ASPIRIN EC 81 MG TABEC PO (09:00)
[2025-02-13] MEDS: PANTOPRAZOLE 40 MG TABLET PO ×2 (09:00→20:09)
[2025-02-13] MEDS: cefTRIAXone 1,000 MG in SODIUM CHLORIDE 0.9% (Popper) 50 ML 100 MG IV (09:01)
--- NOTE | 2025-02-13 09:53 | ESPR_ITS ---
<Statement entered by Krystyna Peralta MD - 02/20/25 12:10> I reviewed above note and agree with findings and plans. I have also personally examined the patient with medicine team and went over assessment and plan with medical team including market research intern and resident physician. <Statement entered by Manuel Escobar MD - 02/13/25 14:23> I saw and examined patient personally and supervised PGY 1 resident, Dr. Litteljohn with formulating a management plan. I agree with the documentation with the exceptions as listed below. 74-year-old male with past medical history of hypertension, hyperlipidemia, diabetes mellitus type 2, coronary artery disease status post CABG x 3 (2011) who presented to the ED on 02/11/2025 due to vomiting and abdominal pain, admitted for GI bleed workup. Problem list: 1. Acute blood loss anemia secondary to Colonic Angiodysplasia 2. Esophageal and Gastric Ulcers 3. Hyperkalemia ? K 5.6 4. Left great toe osteomyelitis 5. Peripheral arterial disease 6. MASLD 7. NIDDM type II 8. CAD s/p CABG 9. Primary hypertension 10. Hyperlipidemia Patient underwent colonoscopy yesterday which did not show colonic angiodysplasias which were cauterized as well as friable area of mucosa in ascending and descending and transverse colon. He was started on aspirin 81 mg p.o. daily today as per GI recommendations. Also recommended for outpatient bilateral carotid artery duplex, cardiac stress test, peripheral Doppler and follow-up in 2 weeks. Patient denies any further episodes of hematochezia, melena or coffee-ground emesis since hospitalization. Will repeat H&H at 8 PM and tomorrow morning. Once hemoglobin remained stable and no further episodes of bleeding anticipate discharge within 24 to 48 hours. Patient's liver ultrasound showed fatty infiltrates. This along with his history of diabetes and negligible alcohol use suggest MASLD. Patient is already on high-dose atorvastatin and his LDL is 33. Will decrease his atorvastatin dose to 40 mg p.o. at bedtime upon discharge. Also no need for SBP prophylaxis as patient does not have cirrhosis. With regards to patient's left great toe arterial ulcer, received 3 days of ceftriaxone IV from 02/11 - 02/13. Upon discharge will prescribe 3 more days of doxycycline 100 mg p.o. twice daily to complete a total of 7 days. He will also continue to follow-up with his bottom turner. Plan of care discussed with Attending Dr. Fabian Escobar MD PGY 2 Disclaimer: This note was dictated by speech recognition. Minor errors in neurosurgeon may be present due to voice recognition software. Documentation for date of: 02/13/25 Subjective Subjective Interval history: Patient examined bedside, labs reviewed, patient interviewed with printing press machine operator. Confirms he is not in any discomfort. States he is doing well without any complaints. Exam Vital Signs Temp Pulse Resp BP Pulse Ox O2 Del Method O2 Flow Rate 97.1 F 62 17 145/77 H 98 Room Air 3 02/13/25 08:00 02/13/25 09:02 02/13/25 08:00 02/13/25 09:02 02/13/25 08:00 02/13/25 08:00 02/12/25 20:00 Narrative Exam General: This is an elderly, pleasant, conversation gentleman, no acute distress. HEENT: Mucosa moist. No oropharyngeal lesions. Pupils are equal and reactive to light bilaterally. Cardiovascular: Normal S1 and S2. Regular rate and rhythm. Subtle flow murmur appreciated. DP pulse diminished on the left foot, popliteal pulse intact on the left. Respiratory: Clear to auscultation bilaterally without wheezes or crackles. Abdomen: Soft, non distended, very mild LLQ tenderness. Skin: Dry, some bruising noted on the arms. Musculoskeletal: No gross injuries. Able to move all 4 extremities. Non edematous lower extremities. Left great toe has dry eschar at the tip with proximal erythema extending to the base of the phalanx. No purulent material noted. Neuro: Alert and oriented x3. No focal neuro deficits. Intact sensation of the feet bilaterally. Psych: Normal affect and mood Objective Labs 02/13/25 04:50 02/13/25 04:50 Labs: Laboratory Results - last 24 hr 02/13/25 04:50 WBC 6.9 RBC 2.88 L Hgb 8.9 L Hct 27.3 L MCV 95 MCH 30.9 MCHC 32.6 RDW Std Deviation 51.5 H Plt Count 341 Neut % (Auto) 50 Lymph % (Auto) 38 [place] % (Auto) 7 Eos % (Auto) 3 Baso % (Auto) 1 Neut # (Auto) 3.4 Lymph # (Auto) 2.6 [place] # (Auto) 0.5 Eos # (Auto) 0.2 Baso # (Auto) 0.1 Immature Gran # (Auto) 0.07 H Absolute Nucleated RBC 0.00 Immature Gran % 1 H Nucleated RBC % 0 APTT 32.8 Sodium 142 Potassium 4.5 D Chloride 110 H Carbon Dioxide 22.0 Anion Gap 10 BUN 10 Creatinine 1.1 Estim Creat Clear Calc 44.0 L eGFR > 60 BUN/Creatinine Ratio 9 L Glucose 133 H Calculated Osmolality 284 Calcium 8.8 Corrected Calcium 9.1 Phosphorus 3.3 Magnesium 1.7 Total Bilirubin 0.2 L AST 28 ALT 35 Alkaline Phosphatase 93 Total Protein 5.8 Albumin 3.6 Globulin 2.2 L Albumin/Globulin Ratio 1.6 Triglycerides 84 Cholesterol 94 L LDL Cholesterol, Calc 33 HDL Cholesterol 44 Cholesterol/HDL Ratio 2.1 L Quality Measures Quality Measures VTE prophylaxis Advance care planning discussed with:: other Assessment & Plan Assessment Current Active Medications: Generic Name Dose Route Start Last Admin Trade Name Freq PRN Reason Stop Dose Admin Acetaminophen 650 mg 02/11/25 00:03 Acetaminophen 325 Mg Tablet PO 03/13/25 00:02 Q6H PRN Fever >100.4 Acetaminophen 650 mg 02/11/25 00:03 02/11/25 05:58 Acetaminophen 325 Mg Tablet PO 03/13/25 00:02 650 mg Q6H PRN Administration PAIN SCALE 1-3 (mild Amlodipine Besylate 5 mg 02/12/25 20:00 02/13/25 09:02 Amlodipine Besylate 5 Mg Tablet PO 03/14/25 19:59 5 mg QDAY MURIEL Administration Aspirin 81 mg 02/13/25 09:00 02/13/25 09:00 Aspirin Ec 81 Mg Tabec PO 03/15/25 08:59 81 mg QDAY MURIEL Administration Atorvastatin Calcium 80 mg 02/11/25 21:00 02/12/25 21:27 Atorvastatin Calcium 20 Mg Tablet PO 03/13/25 20:59 80 mg HS MURIEL Administration Dextrose 25 ml 02/11/25 00:14 Dextrose 50%-Water Inj 50 Ml Syringe IV 03/13/25 00:13 Q15MIN PRN BG 50-70 responsive npo pt Dextrose 50 ml 02/11/25 00:14 Dextrose 50%-Water Inj 50 Ml Syringe IV 03/13/25 00:13 Q15MIN PRN BG <50 OR BG <70 & pt unresponsive Glucagon 1 mg 02/11/25 00:14 Glucagon Inj 1 Mg Vial IM Q15MIN PRN BG <70, and no IV access Ceftriaxone Sodium 1,000 mg/ 50 mls @ 100 mls/hr 02/13/25 09:00 02/13/25 09:01 Sodium Chloride IV 02/20/25 08:59 100 mls/hr QDAY MURIEL Administration Insulin Human Lispro 0 unit 02/11/25 07:30 02/13/25 07:44 Insulin Lispro (Admelog) 1 Unit/0.01 Ml Unit SC 03/13/25 07:29 Not Given AC MURIEL Protocol Ondansetron HCl 4 mg 02/11/25 00:03 02/13/25 06:43 Ondansetron Inj 2 Mg/Ml Inj 2 Ml IVP 03/13/25 00:02 4 mg Q6H PRN Administration NAUSEA OR VOMITING Protocol Pantoprazole Sodium 40 mg 02/13/25 09:00 02/13/25 09:00 Pantoprazole 40 Mg Tablet PO 03/15/25 08:59 40 mg BID MURIEL Administration Sennosides 1 tab 02/11/25 09:00 02/13/25 09:00 Senna Tablet PO 03/13/25 08:59 1 tab QDAY MURIEL Administration Protocol Sodium Chloride 3 ml 02/10/25 21:42 02/11/25 19:28 Sodium Chloride Rt [place] 0.9% 3 Ml Nebu INH 03/12/25 21:41 3 ml PRN PRN Administration SOLN Tamsulosin HCl 0.4 mg 02/11/25 09:00 02/11/25 08:18 Tamsulosin Hcl 0.4 Mg Capsule PO 03/13/25 08:59 0.4 mg On Hold: 02/11/25 09:00 QDAY MURIEL Administration Plan 74-year-old male with past medical history of hypertension, hyperlipidemia, diabetes mellitus type 2, coronary artery disease status post CABG x 3 (2011) who presented to the ED on 02/11/2025 due to vomiting and abdominal pain, admitted for GI bleed workup. Bleeding ulcers, and friability of gastric mucosa found on colonoscopy. Per surgery, Dr. Resendez, no need for CTA does not think images document ischemic colitis b/c ischemic colitis has a darker hue/blue coloring, while as these images appeared whitish. #Acute blood loss anemia #Esophageal Ulcers #Non-bleeding gastric ulcers #Possible GI Bleed Patient presenting with abdominal pain, non-bloody emesis, denies melena or bloody stools or NSAID use. Some abdominal tenderness in the LLQ. Hgb 7.[address] notable for possible cirrhosis or primary hepatocellular disease. Has been hospitalized for anemia at [facility] in the past, received blood transfusion, but denies having ever had an endoscopy. Differential includes peptic ulcers, possible variceole bleed based on CT findings, versus diverticulosis or colonic malignancy. EGD does not explain degree of anemia. Colonoscopy today showed angiodysplastic lesions. Colonoscopy impression: internal hemorrhoids, two bleeding colonic angiodysplastic lesions treated with bipolar cautery. Friability with contact bleeding in the ascending, transverse, descending colon biopsied. Patient has ischemic colitis involving ascending, transverse, and descending colon bx taken and sent to histopathology. EGD: esophageal ulcers, non-bleeding gastric ulcers with a clean ulcer based (Kody Class 3), gastritis, characterized by erythema, bx in gastric antrum and in the cardia, normal second portion of the duodenum. GI recs: -retrun to office 2 weeks -low fiber diet -outpatient workup: bilateral carotid US, cardiac stress test, peripheral doppler US, lipid panel, aspirin 81mg enteric coated QD. ? Protonix 40mg IV twice daily -Blood transfusion. 1 unit pRBCs given ? Transfuse if hemoglobin less than 7 - Ferumoxytol 510 mg IV x1 - EPO 10,000 unit Inj x1 #HTN #CAD s/p CABGx3 On 180 mg dilitazem at home. Plan: - Labetalol 10mg IVP PRN - Systolic >180 DBP>110 - Losartan 25 mg PO HS #KOLBY - Improving #Hyperkalemia - Improving Prerenal due to blood loss or medication (bactrim, jardiance, metformin). Not intrinsic b/c no RBC on urinalysis. Not post renal b/c no hydronephrosis on imaging. CT shows distended bladder, though patient hasn't had poor oral intake due to vomiting and abdominal pain. Creatinine 1.7 --> 1.2, potassium 5.9 --> 5.3 In the ED patient received hyperkalemia cocktail and 2 L of IV fluids ? [place] catheter placed and DC on 02/11. ? on IVF at 60 mL/h - Given more albuterol and kayexalate --> DC'd ? Avoid nephrotoxins ? Renally dose medications ? F/U renal renal panel #DM #Diabetic Toe Ulcer vs arterial ulcer #Soft tissue infection Has wound on the tip of the left great toe, is dry, appears almost like an eschar. The surrounding more proximal tissue is erythematous but limited to the phalanx. WBC 13, ESR and CRP are 52 and 15.2 respectively. X-ray of toe read as possible early osteomyelitis. General surgery consulted, deemed that this does not look concerning for osteomyelitis. Plan: -Gabapentin 100mg PO Q12 -On ceftriaxone 1q IV QD for soft tissue infection, 02/11- -sliding scale -holding jardiance and metformin for now. #possible PAD Diminshed DP pulse on the left foot. Popliteal pulse intact. Arterial/Peripheral duplex notable for findings suspicious for peripheral obstructive arterial disease in the trifurcation arteries below the knee. Ankle brachial index 1.2. May be contributing to his foot wound, noted above. -Can consider starting cilostazol outpatient. -Lipid panel AM #HLD - Atorvastatin 80mg PO QD Health Maintenance: DVT prophylaxis: SCDs Diet: Low fiber [place]: none Lines: PIV CODE STATUS: Full code Disposition: Discharge tomorrow Patient's plan and care discussed with my attending, Dr. Peralta and my senior Dr Luz Littlejohn MD PGY-1 IM Attending Provider Attestation/Addendum Patient seen and examined with resident physician Dr. Littlejohn/Dr. French. note reviewed, agree with findings and recommendations.
[2025-02-13] MEDS: ACETAMINOPHEN 325 MG TABLET 650 MG PO (11:23)
[2025-02-13] MEDS: INSULIN LISPRO (AdmeLOG) 1 UNIT/0.01 ML UNIT SC ×2 (11:24→17:22)
--- NOTE | 2025-02-13 14:24 | PC.SS ---
SW follow-up note: One more night for observation. Possible d/c home 02/14/2025.
[2025-02-13] MEDS: GABAPENTIN 100 MG CAPSULE PO ×2 (15:46→20:06)
[2025-02-13] MEDS: MORPHINE SULF INJ 4 MG/ML VIAL 1 MG IVP (17:41)
--- NOTE | 2025-02-13 19:05 | PD.IMPROG ---
Documentation for date of: 02/13/25 Subjective Subjective Interval history: Patient is status post colonoscopy findings are suggestive of ischemic colitis Exam Vital Signs Temp Pulse Resp BP Pulse Ox O2 Del Method O2 Flow Rate 97.0 F 66 17 140/75 H 91 L Room Air 3 02/13/25 16:00 02/13/25 16:00 02/13/25 16:00 02/13/25 16:00 02/13/25 16:00 02/13/25 16:00 02/12/25 20:00 Objective Labs 02/13/25 04:50 02/13/25 04:50 Labs: Laboratory Results - last 24 hr 02/13/25 04:50 WBC 6.9 RBC 2.88 L Hgb 8.9 L Hct 27.3 L MCV 95 MCH 30.9 MCHC 32.6 RDW Std Deviation 51.5 H Plt Count 341 Neut % (Auto) 50 Lymph % (Auto) 38 [place] % (Auto) 7 Eos % (Auto) 3 Baso % (Auto) 1 Neut # (Auto) 3.4 Lymph # (Auto) 2.6 [place] # (Auto) 0.5 Eos # (Auto) 0.2 Baso # (Auto) 0.1 Immature Gran # (Auto) 0.07 H Absolute Nucleated RBC 0.00 Immature Gran % 1 H Nucleated RBC % 0 APTT 32.8 Sodium 142 Potassium 4.5 D Chloride 110 H Carbon Dioxide 22.0 Anion Gap 10 BUN 10 Creatinine 1.1 Estim Creat Clear Calc 44.0 L eGFR > 60 BUN/Creatinine Ratio 9 L Glucose 133 H Calculated Osmolality 284 Calcium 8.8 Corrected Calcium 9.1 Phosphorus 3.3 Magnesium 1.7 Total Bilirubin 0.2 L AST 28 ALT 35 Alkaline Phosphatase 93 Total Protein 5.8 Albumin 3.6 Globulin 2.2 L Albumin/Globulin Ratio 1.6 Triglycerides 84 Cholesterol 94 L LDL Cholesterol, Calc 33 HDL Cholesterol 44 Cholesterol/HDL Ratio 2.1 L Impressions Impression: Ischemic colitis Gastritis AVMs transverse colon status post bipolar gold heater probe Continue current management Assessment & Plan Time Spent With Patient Time: Total time spent is greater than 50% in coordination of care (as documented) at patient's floor/unit and/or counseling patient:
[2025-02-13] MEDS: ATORVASTATIN CALCIUM 20 MG TABLET 80 MG PO (20:06)
[2025-02-13] MEDS: TAMSULOSIN HCL 0.4 MG CAPSULE PO (20:09)
[2025-02-13] MEDS: LOSARTAN POTASSIUM 25 MG TABLET PO (20:09)
[2025-02-13 20:50] LABS: Hematocrit 27.3 % (41.0-53.0); Hemoglobin 8.9 g/dL (13.5-16.0)
[2025-02-13] MEDS: HYDROcodone/APAP 5/325 TABLET 1 TAB PO (22:55)
[2025-02-14] VITALS: PULSE 73
[2025-02-14 04:00] VITALS: BP 123/65; PULSE 64; PULSE 71; RESP 16; TEMP 36.6; O2SAT 96
[2025-02-14] MEDS: MORPHINE SULF INJ 4 MG/ML VIAL 2 MG IVP ×2 (04:15→08:20)
[2025-02-14 05:43] LABS: Basophils # (Auto) 0.0 Thou/mm3 (0.0-0.2); Basophils % (Auto) 1 % (0-2.5); Eosinophils # (Auto) 0.2 Thou/mm3 (0.0-0.5); Eosinophils % (Auto) 3 % (0-10); Hematocrit 26.6 % (41.0-53.0); Hemoglobin 8.9 g/dL (13.5-16.0); Immature Granulocytes Auto 0.14 Thou/mm3 (0.00-0.00); Lymphocytes # (Auto) 2.9 Thou/mm3 (1.0-4.8); Lymphocytes % (Auto) 42 % (10-50); Mean Corpuscular HGB Conc 33.5 g/dl (31.0-37.0); Mean Corpuscular Hemoglobin 31.4 pg (25.0-35.0); Mean Corpuscular Volume 94 fL (80-100); Monocytes # (Auto) 0.6 Thou/mm3 (0.0-0.8); Monocytes % (Auto) 9 % (0-12); Neutrophils # (Auto) 3.0 Thou/mm3 (1.8-7.7); Neutrophils % (Auto) 44 % (37-80); Nucleated Red Blood Cell # 0.00 Thou/mm3 (0.00-0.00); Nucleated Red Blood Cell % 0 /100 WBC (0); Platelet Count 286 Thou/mm3 (140-440); RDW Standard Deviation 50.5 fL (35.1-43.9); Red Blood Count 2.83 Miln/mm3 (4.50-5.90); White Blood Count 6.8 Thou/mm3 (3.8-10.6)
[2025-02-14 06:00] VITALS: BMI 20.7
[2025-02-14 06:15] LABS: Alanine Aminotransferase 29 U/L (10-49); Albumin, Serum 3.5 gm/dL (3.4-4.8); Albumin/Globulin Ratio 1.7 (1.2-2.2); Alkaline Phosphatase 91 U/L (46-116); Anion Gap 10 (7-16); Aspartate Amino Transferase 19 U/L (0-34); BUN/Creatinine Ratio 8 Ratio (12-20); Bilirubin,Total 0.2 mg/dL (0.3-1.2); Blood Urea Nitrogen 8 mg/dL (9-23); Calcium 8.4 mg/dL (8.3-10.6); Calcium (Corrected) 8.8 mg/dL (8.5-10.1); Carbon Dioxide 21.5 mMol/L (20.0-31.0); Chloride 109 mMol/L (98-107); Creatinine (Component) 1.0 mg/dL (0.6-1.3); Estimated Creatinine Clearance 48.1 mL/min (>60); Globulin 2.1 gm/dL (2.3-3.5); Glucose 162 mg/dL (74-106); Magnesium 1.6 mg/dL (1.6-2.6); Osmolality,Calculated 281 (275-295); Phosphorous 3.4 mg/dL (2.4-5.1); Potassium 4.4 mMol/L (3.4-5.1); Sodium 140 mMol/L (136-145); Total Protein 5.6 gm/dL (5.7-8.2); eGFR > 60 See Note
[2025-02-14] MEDS: INSULIN LISPRO (AdmeLOG) 1 UNIT/0.01 ML UNIT SC ×2 (07:25→11:32)
[2025-02-14 08:00] VITALS: BP 115/76; PULSE 67; PULSE 71; RESP 16; TEMP 36.2; O2SAT 97
[2025-02-14] MEDS: cefTRIAXone 1,000 MG in SODIUM CHLORIDE 0.9% (Popper) 50 ML 100 MG IV (08:10)
[2025-02-14] MEDS: ASPIRIN EC 81 MG TABEC PO (08:10)
[2025-02-14] MEDS: PANTOPRAZOLE 40 MG TABLET PO (08:10)
[2025-02-14] MEDS: GABAPENTIN 100 MG CAPSULE PO (08:10)
--- NOTE | 2025-02-14 08:42 | PC.SS ---
Update: Plan is for the patient to d/c home today.
--- NOTE | 2025-02-14 09:37 | ESDS_ITS ---
<Statement entered by Krystyna Peralta MD - 02/20/25 12:10> I reviewed above note and agree with findings and plans. I have also personally examined the patient with medicine team and went over assessment and plan with medical team including sales intern and resident physician. <Statement entered by Manuel Escobar MD - 02/14/25 19:04> I saw and examined patient personally and supervised PGY 1 resident, Dr. Littlejohn with formulating a management plan. I agree with the documentation with the exceptions as listed below. 74-year-old male with past medical history of hypertension, hyperlipidemia, diabetes mellitus type 2, coronary artery disease status post CABG x 3 (2011) who presented to the ED on 02/11/2025 due to vomiting and abdominal pain, admi tted for GI bleed workup. EGD showed few linear esophageal ulcers at the GE junction, gastric ulcers and erythema of stomach. Colonoscopy showed internal hemorrhoids and colonic angiodysplasia which was cauterized.During hospitalization patient received 2 units PRBC infusion after which hemoglobin remained stable between 8?9. Patient was discharged on a 10-day course of doxycycline for osteomyelitis, an order for carotid artery duplex ultrasound and 3 days of hydrocodone for toe pain. Patient strongly recommended to follow-up with GI and cardiology as outpatient. Problem list: 1. Acute blood loss anemia secondary to Colonic Angiodysplasia - resolved 2. Esophageal and Gastric Ulcers 3. Left great toe osteomyelitis 4. Peripheral arterial disease 5. MASLD 6. NIDDM type II 7. CAD s/p CABG 8. Primary hypertension 9. Hyperlipidemia Plan of care discussed with Attending Dr. Fabian Escobar MD PGY 2 Disclaimer: This note was dictated by speech recognition. 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 Planned Discharge Date 02/14/25 DS: Providers Provider Date of admission: 02/11/25 00:03 Primary care physician: Ebony Sauer MD Admitting Provider: Stanislav Herrera MD Attending Provider on Admission: Anushka Escamilla MD Consults: 02/11/25 00:12 Consult to Gastroenterology Stat Comment: Consulting Provider: Jojo Carrillo 02/11/25 00:14 Referral Registered Dietitian Routine Comment: 02/11/25 00:16 Referral Wound Care Stat Comment: 02/11/25 10:04 Consult to General Surgery Routine Comment: possible debfriment on greater toe Consulting Provider: Linda Negron Attending Provider on DC: Krystyna Peralta MD Discharging Provider: Krystyna Peralta MD DS: Diagnosis Problem List Completed Was Problem List Reviewed/Reconciled?: Yes Hospital Course Hospital Course Hospital course: 74-year-old male with past medical history of hypertension, hyperlipidemia, diabetes mellitus type 2, coronary artery disease status post CABG x 3 (2011) who presented to the ED on 02/11/2025 due to vomiting and abdominal pain, admitted for GI bleed workup. In the ED patient was hypertensive 154/73, all other VSS. Labs significant for hemoglobin 7.3, hematocrit 21.7, potassium 5.9, BUN 28, creatinine 1.7, UA shows some glucose +4 but negative for UTI. EKG shows sinus bradycardia. CT abdomen pelvis shows 8mm pulmonary nodule right lower lobe, Cirrhosis versus primary hepatocellular disease, Trace ascites, Mild small bowel ileus versus enteritis, mild colitis pattern. Patient given hype rkalemia cocktail with breathing treatment and insulin. Patient also given 2 L bolus. Upon admission his EGD was unremarkable except for 1 small non bleeding ulcer. his colonoscopy showed friable mucousa, ischemic colitis, andangiodysplasias. Patient is now stable hemoglobin is stable and our Gi specialist recommends outpatient workup: bilateral carotid US, cardiac stress test, peripheral doppler US, lipid panel, aspirin 81mg enteric coated QD. Patient is safe to discharge. Discharge Instructions: -Outpatient Recommendations given ischemic colitis diagnosis: Bilateral Carotid U/S, Cardiac Stress Test, Peripheral Dopper U/S, Lipid Panel, Aspirin 81 mg (enteric coated). -Soft Tissue infection, Stop Sulfamethoxazole-Trimethoprim, and continue doxycycline for 10 additional days. -START Aspirin 81 mg once daily - You have been started on a new medication Hydrocodone for your toe pain. Take as directed below -Continue Atorvastatin 80 mg once per night. -STOP Metformin until you follow up with your primary care provider, your A1c was to low to calculate inpatient. Fasting glucose levels have been low 100s. - Please follow up with your primary care provider for further adjustments. - We have STOPPED your blood pressure medication DILTIAZEM - We recommend you do an ultrasound of your neck to look for plaque before seeing your Primary doctor - See your PCP for a referral to a professor of graphic design to do a stress test -Please follow up with Dr. Carrillo, Procurement Accountant. -Follow up with your grid maker -Please follow up with your primary care provider within one week of discharge -If your symptoms worsen,please seek immediate medical attention and return to your nearest emergency room -If you do not have a primary care provider, you may follow up at [facility] [address], [place] [address], #Acute blood loss anemia #Esophageal Ulcers #Non-bleeding gastric ulcers #Possible GI Bleed #HTN #CAD s/p CABGx3 #KOLBY - Improving #Hyperkalemia - Improving #DM #Diabetic Toe Ulcer vs arterial ulcer #Soft tissue infection #possible PAD #HLD Patient's plan and care discussed with my attending, Dr. Peralta, and supervising resident MD Epifanio Moser MD Internal Medicine PGY-1 Time Spent with Patient Time attestation: Total time spent providing and/or coordinating discharge services: Time spent: Greater than 30 minutes (37) Exam Vital Signs Temp Pulse Resp BP Pulse Ox O2 Del Method O2 Flow Rate 97.2 F 71 16 115/76 97 Room Air 3 02/14/25 08:00 02/14/25 08:00 02/14/25 08:00 02/14/25 08:00 02/14/25 08:00 02/14/25 08:00 02/12/25 20:00 Narrative Exam General: This is an elderly, pleasant, conversation gentleman, no acute distress. HEENT: Mucosa moist. No oropharyngeal lesions. Pupils are equal and reactive to light bilaterally. Cardiovascular: Normal S1 and S2. Regular rate and rhythm. Subtle flow murmur appreciated. DP pulse diminished on the left foot, popliteal pulse intact on the left. Respiratory: Clear to auscultation bilaterally without wheezes or crackles. Abdomen: Soft, non distended, very mild LLQ tenderness. Skin: Dry, some bruising noted on the arms. Musculoskeletal: No gross injuries. Able to move all 4 extremities. Non edematous lower extremities. Left great toe has dry eschar at the tip with proximal erythema extending to the base of the phalanx. No purulent material noted. Neuro: Alert and oriented x3. No focal neuro deficits. Intact sensation of the feet bilaterally. Psych: Normal affect and mood Discharge Plan Plan Patient Disposition: HOME (Self Care) Patient condition on transfer: Stable Care Plan Goals: Instructions: -Outpatient Recommendations given ischemic colitis diagnosis: Bilateral Carotid U/S, Cardiac Stress Test, Peripheral Dopper U/S, Lipid Panel, Aspirin 81 mg (enteric coated). -Soft Tissue infection, Stop Sulfamethoxazole-Trimethoprim, and continue doxycycline for 10 additional days. -START Aspirin 81 mg once daily - You have been started on a new medication Hydrocodone for your toe pain. Take as directed below -Continue Atorvastatin 80 mg once per night. -STOP Metformin until you follow up with your primary care provider, your A1c was to low to calculate inpatient. Fasting glucose levels have been low 100s. - Please follow up with your primary care provider for further adjustments. - We have STOPPED your blood pressure medication DILTIAZEM - We recommend you do an ultrasound of your neck to look for plaque before seeing your Primary doctor - See your PCP for a referral to a professor of graphic design to do a stress test -Please follow up with Dr. Carrillo, Procurement Accountant. -Follow up with your grid maker -Please follow up with your primary care provider within one week of discharge -If your symptoms worsen,please seek immediate medical attention and return to your nearest emergency room -If you do not have a primary care provider, you may follow up at the [facility] [address], [place] [address], Instrucciones al [place] Diagn?stico: Colitis Isqu?sherin Recomendaciones Adicionales * Ultrasonido Doppler de ambas arterias car?tidas ? para detectar obstrucciones en las arterias del phoebe. * Prueba de esfuerzo card?aco ? para evaluar el funcionamiento del coraz?n. * Ultrasonido Doppler perif?rico ? para revisar la circulaci?n en las piernas. * Perfil de l?pidos ? para evaluar niveles de colesterol. * Iniciar Aspirina 81 mg (recubierta ent?mat), celia vez al d?a ? ayuda a prevenir co?gulos. Infecci?n de Tejidos Blandos * Suspender el uso de Sulfametoxazol-Trimetoprim. * Continuar con Doxiciclina por 10 d?as adicionales, seg?n indicaci?n m?dica. Manejo del Dolor * Se le charlton iniciado Hidrocodona para el dolor en el dedo del pie. * T?shraddha seg?n las instrucciones en la etiqueta de la receta. Condiciones Cr?nicas Colesterol: * Continuar Atorvastatina 80 mg ? karlene celia vez por la noche. Diabetes: * Suspender Metformina temporalmente. * Bekah niveles de glucosa en ayunas estuvieron bajos viji cortes hospitalizaci?n. * Debe consultar con cortes m?dico de atenci?n primaria para ajustes del tratamiento. Presi?n arterial: * Se charlton suspendido Diltiazem, cortes medicamento para la presi?n arterial. Citas de Seguimiento * M?dico de atenci?n primaria: dentro de celia semana despu?s del lou. * Si no tiene m?dico de cabecera, puede acudir a: * [facility] [address], [address] [place] [address] Tel?fono: * Gastroenter?logo: Dr. Carrillo ? programe celia kimberly de seguimiento. * Pod?logo: Hacer seguimiento por el dolor en el dedo del pie. * Cardi?logo: Solicite a cortes m?dico de cabecera celia remisi?n para celia prueba de esfuerzo. Recomendaciones Adicionales * Se recomienda realizar un ultrasonido del phoebe para buscar placas antes de malgorzata a cortes m?dico de cabecera. Prescriptions/Referrals Prescriptions/Med Rec: New pantoprazole [Protonix] 40 mg tablet,delayed release (DR/EC) 40 mg PO BID 30 Days Qty: 60 0RF hydrocodone-acetaminophen 5-325 mg tablet 1 tab PO Q8H MDD 3 tabs PRN (Reason: pain) 3 Days Qty: 9 0RF naloxone [Narcan] 4 mg/actuation spray,non-aerosol 1 spray intranasal Q2M PRN (Reason: opioid overdose) Qty: 2 0RF Rx Instructions: spray 1 dose into ONE nostril; alternate nostrils w each dose until help arr lenny doxycycline hyclate 100 mg tablet 100 mg PO BID 10 Days Qty: 20 0RF Continued atorvastatin 80 mg tablet 80 mg PO HS tamsulosin 0.4 mg capsule 0.4 mg PO QDAY Jardiance 25 mg tablet 25 mg PO QDAY gabapentin 100 mg capsule 100 mg PO Q12H Discontinued metformin [Glucophage] 1,000 MG tablet 500 mg PO BID Qty: 0 sulfamethoxazole-trimethoprim 800-160 mg tablet 1 tab PO QDAY diltiazem HCl 180 mg capsule,extended release 24hr 180 mg PO Q12H Referrals: [facility] [Outside] Angelito Zhu MD [Physician, Cardiology] Jojo Carrillo MD [Physician, Gastroenterology] Ebony Sauer MD [Primary Care Provider] Outpatient Orders (i.e. Home Health, Labs, Imaging): US carotid duplex (Routine) Location: Determined by Patient Ordered By: Manuel Escobar Patient/Caregiver Discharge Instructions Education Materials: Ischemic Colitis, Understanding Gastritis, Understanding Hemorrhoids Print Language: Mauritian Stand Alone Forms: Sapna Award Info., Patient Portal Info Letter Discharge Order Discharge Orders: Discharge (Routine); Ordered 02/14/25 Ordered By: Manuel Escobar Quality Discharge Quality Measures VTE prophylaxis
[2025-02-14] MEDS: Magnesium Sulfate 4 GM Ivpb 4 GM/50 ML BAG IV (10:40)
[2025-02-14 12:00] VITALS: BP 138/75; PULSE 66; PULSE 69; RESP 17; TEMP 36.9; O2SAT 99
== END 2025-02-14 12:55 | disposition home or self-care (01) | DRG 378 ==
LOC: SERX 23:58 → SERHOLD 02-11 00:35 → S2NX 02-11 01:17
PROVIDERS: Physician Assistant; Specialist; Student in an Organized Health Care Education/Training Program; Admitting Provider Student in an Organized Health Care Education/Training Program; PCP Family Medicine; Visit Provider Internal Medicine
PROC: 0DB48ZX Excision of Esophagogastric Junction, Via Natural or Artificial Opening Endoscopic, Diagnostic (ICD-10-PCS; CPT 43239; principal; 2025-02-11 15:30)
PROC: 0DJD8ZZ Inspection of Lower Intestinal Tract, Via Natural or Artificial Opening Endoscopic (ICD-10-PCS; CPT 45378; principal; 2025-02-12 18:45)
DX: K55.21 Angiodysplasia of colon with hemorrhage (principal); D62 Acute posthemorrhagic anemia; N17.9 Acute kidney failure, unspecified; M86.8X7 Other osteomyelitis, ankle and foot; K92.1 Melena; I10 Essential (primary) hypertension; E87.5 Hyperkalemia; E78.5 Hyperlipidemia, unspecified; E11.51 Type 2 diabetes mellitus with diabetic peripheral angiopathy without gangrene; I25.10 Atherosclerotic heart disease of native coronary artery without angina pectoris; L08.9 Local infection of the skin and subcutaneous tissue, unspecified; E11.621 Type 2 diabetes mellitus with foot ulcer; E11.69 Type 2 diabetes mellitus with other specified complication; E86.1 Hypovolemia; K25.4 Chronic or unspecified gastric ulcer with hemorrhage; K76.0 Fatty (change of) liver, not elsewhere classified; K64.1 Second degree hemorrhoids; K29.71 Gastritis, unspecified, with bleeding; Z79.84 Long term (current) use of oral hypoglycemic drugs; Z95.1 Presence of aortocoronary bypass graft; L97.529 Non-pressure chronic ulcer of other part of left foot with unspecified severity; Z79.82 Long term (current) use of aspirin; Z90.49 Acquired absence of other specified parts of digestive tract
CPT/HCPCS: 36415; 73660; 74018; 74176; 76705; 80053; 80061; 80069; 81001; 83036; 83690; 83735; 84100; 84145; 84484; 85014; 85018; 85025; 85610; 85652; 85730; 86140; 86850; 86900; 86901; 86923; 87040; 87081; 93005; 93306; 93922; 94640; 96361; 96374; 96375; 99284; A4649; J0696; J1171; J1200; J1815; J2250; J2270; J2405; J2470; J3010; J3475; J7030; J7050; J7120; P9016; Q0138; Q0162; Q5106; A9270

== ENCOUNTER 2025-03-04 17:27 | Emergency (ER) | payer MEDICARE, SELFPAY ==
[2025-03-04 17:27] VITALS: BMI 22.4
[2025-03-04 18:15] VITALS: BP 125/68; PULSE 66; RESP 18; TEMP 36.8; O2SAT 98
--- NOTE | 2025-03-04 18:28 | EDRME_ITS ---
Rapid Medical Screening Exam FORMERLY [facility], [facility] Arrival date/time: 03/04/25 17:27 75M with history of HTN, DM, CAD, and recent admission for GIB that showed colonic angiodysplasia presents to ED with the same LLQ pain. Patient stopped taking meds he was discharged with because they made his legs swell. Chief Complaint: Abdominal Pain Vital signs: Vital Signs Temperature 98.3 F 03/04/25 18:15 Pulse Rate 66 03/04/25 18:15 Respiratory Rate 18 03/04/25 18:15 Blood Pressure 125/68 03/04/25 18:15 Pulse Oximetry (%) 98 03/04/25 18:15 Oxygen Delivery Method Room Air 03/04/25 18:15 Exam: Appears to be in pain Clinical Impression: Diverticulitis vs GIB vs ab pain vs hernia vs pyelo/UTI
[2025-03-04] MEDS: HYDROcodone/APAP 5/325 TABLET 1 TAB PO (18:53)
[2025-03-04 18:58] LABS: Basophils # (Auto) 0.1 Thou/mm3 (0.0-0.2); Basophils % (Auto) 1 % (0-2.5); Eosinophils # (Auto) 0.2 Thou/mm3 (0.0-0.5); Eosinophils % (Auto) 2 % (0-10); Hematocrit 30.5 % (41.0-53.0); Hemoglobin 9.8 g/dL (13.5-16.0); Immature Granulocytes Auto 0.06 Thou/mm3 (0.00-0.00); Lymphocytes # (Auto) 2.5 Thou/mm3 (1.0-4.8); Lymphocytes % (Auto) 23 % (10-50); Mean Corpuscular HGB Conc 32.1 g/dl (31.0-37.0); Mean Corpuscular Hemoglobin 30.9 pg (25.0-35.0); Mean Corpuscular Volume 96 fL (80-100); Monocytes # (Auto) 0.7 Thou/mm3 (0.0-0.8); Monocytes % (Auto) 6 % (0-12); Neutrophils # (Auto) 7.6 Thou/mm3 (1.8-7.7); Neutrophils % (Auto) 68 % (37-80); Nucleated Red Blood Cell # 0.00 Thou/mm3 (0.00-0.00); Nucleated Red Blood Cell % 0 /100 WBC (0); Platelet Count 558 Thou/mm3 (140-440); RDW Standard Deviation 53.1 fL (35.1-43.9); Red Blood Count 3.17 Miln/mm3 (4.50-5.90); White Blood Count 11.2 Thou/mm3 (3.8-10.6)
[2025-03-04 19:12] LABS: INR 1.0 (0.9-1.3); Partial Thromboplastin Time 30.6 Seconds (22.0-36.0); Prothrombin Time 10.5 Seconds (9.0-12.2)
[2025-03-04 19:28] LABS: Alanine Aminotransferase 25 U/L (10-49); Albumin, Serum 4.6 gm/dL (3.4-4.8); Albumin/Globulin Ratio 1.5 (1.2-2.2); Alkaline Phosphatase 139 U/L (46-116); Anion Gap 10 (7-16); Aspartate Amino Transferase 21 U/L (0-34); BUN/Creatinine Ratio 9 Ratio (12-20); Bilirubin,Total 0.2 mg/dL (0.3-1.2); Blood Urea Nitrogen 17 mg/dL (9-23); Calcium 9.5 mg/dL (8.3-10.6); Calcium (Corrected) 9.5 mg/dL (8.5-10.1); Carbon Dioxide 21.0 mMol/L (20.0-31.0); Chloride 104 mMol/L (98-107); Creatinine (Component) 1.8 mg/dL (0.6-1.3); Estimated Creatinine Clearance 27.4 mL/min (>60); Globulin 3.1 gm/dL (2.3-3.5); Glucose 236 mg/dL (74-106); Osmolality,Calculated 279 (275-295); Potassium 6.0 mMol/L (3.4-5.1); Sodium 135 mMol/L (136-145); Total Protein 7.7 gm/dL (5.7-8.2); eGFR 39 See Note
[2025-03-04 19:42] LABS: Collection Type, Urine Clean Catch
[2025-03-04 19:51] LABS: Bacteria,Urine Rare; Bilirubin,Urine Negative (Negative); Blood,Urine Negative (Negative); Clarity,Urine Clear (Clear/Hazy); Color,Urine Lt-Yellow (Lt Yel-Yel); Culture Indicated,Urine Not Indicated; Glucose, Urine 4+ (Negative); Ketones,Urine Negative (Negative); Leukocyte Esterase,Urine Negative (Negative); Nitrite,Urine Negative (Negative); PH,Urine 6.0 (5.0-7.0); Protein,Urine Trace (Neg - Trace); RBC,Urine 1 /hpf (0-3); Specific Gravity,Urine 1.027 (1.001-1.035); Squamous Epithelial Cell,Urine < 1 /hpf (0-5); Urobilinogen,Urine Negative mg/dL (0.0-1.0); WBC,Urine < 1 /hpf (0-5)
[2025-03-05 01:26] VITALS: BP 138/61; PULSE 69; RESP 18; TEMP 37.1; O2SAT 96
[2025-03-05 01:55] VITALS: PULSE 63
[2025-03-05] MEDS: ALBUTEROL RT 2.5 MG/0.5 ML NEBU 10 MG INH (01:55)
[2025-03-05] MEDS: SODIUM CHLORIDE RT SOL 0.9% 3 ML NEBU INH (01:57)
[2025-03-05 02:00] VITALS: PULSE 68; RESP 18; O2SAT 100
[2025-03-05] MEDS: SODIUM BICARB INJ 8.4% 1 mEq/ML 50 ML VIAL 100 MEQ IV (03:00)
[2025-03-05] MEDS: SOD POLYSTYRENE SULFON SUSP 15 GM/60 ML BTL 30 GM PO (03:01)
[2025-03-05 04:36] VITALS: BP 117/55; PULSE 82; RESP 17; TEMP 37.1; O2SAT 96
--- NOTE | 2025-03-05 04:58 | EDNOTE_ITS ---
ED Abdominal Pain RME/HPI General Chief Complaint: Abdominal Pain Stated complaint: LLQ ABD PAIN X1 DAY Time seen by provider: 03/04/25 20:12 Arrival date/time: 03/04/25 17:27 RME / HPI RME / HPI narrative: 03/04/25 17:27 75M with history of HTN, DM, CAD, and recent admission for GIB that showed colonic angiodysplasia presents to ED with the same LLQ pain. Patient stopped taking meds he was discharged with because they made his legs swell. DR. CONNOR MAIN ED EVALUATION: Patient presenting with LLQ abdominal pain with associated diarrhea beginning at approximately 0400. Patient evaluated 2 weeks COMMUNICATIONS OFFICER due to GI hemorrhage and placed on Protonix. Denies any fever, chills, vomiting, or bloody stools. No melena, lightheadedness, dizziness, or near-syncope. PMH: Type II DM, Diabetic foot ulcer, HTN, Hyperlipidemia, CAD, Osteomyelitis, Ischemic colitis or transverse and descending colon, Colonic angiodysplastic lesions per endoscopy on 02/12/2025. PSH: CABG, Inguinal hernia repair Allergies: None reported Social: Non-drinker, Non-smoker, No illicit drug abuse Exam: Appears to be in pain Impression: Diverticulitis vs GIB vs ab pain vs hernia vs pyelo/UTI Related Data Home Medications ?Medication ?Instructions ?Recorded ?Confirmed atorvastatin 80 mg tablet 80 mg PO HS 02/11/25 5 empagliflozin 25 mg tablet 25 mg PO QDAY 02/11/2508/03 (Jardiance) gabapentin 100 mg capsule 100 mg PO Q12H 02/11/2508/03 tamsulosin 0.4 mg capsule 0.4 mg PO QDAY 02/11/2508/03 Previous Rx's ?Medication ?Instructions ?Recorded pantoprazole 40 mg tablet,delayed 40 mg PO BID Lower G I Bleed 1 02/12/25 release (Protonix) month #60 tabs naloxone 4 mg/actuation nasal 1 spray intranasal Q2M P RN opioid 02/14/25 spray (Narcan) overdose #2 ea Allergies Allergy/AdvReac Type Severity Reaction Status Date / Time No Known Allergies Allergy Verified 03/04/25 17:32 Review of Systems Review of Systems Systems Reviewed: All systems reviewed, normal except as documented Past Medical History Past Medical History CARDIAC: Positive Coronary Artery Disease, Hypercholesterolemia and Hypertension MUSCULOSKELETAL: Positive Osteomyelitis ENDOCRINE: Positive Endocrine Disorders and Diabetes Mellitus Type 2 HEMATOLOGIC: Positive Blood Disorders and Anemia OTHER HISTORY: Positive Blood Transfusions Surgical History SURGICAL: Positive Cardiac Surgery, Coronary Artery Bypass Graft and Amputation ED Exam Narrative Physical exam: GEN. APPEARANCE: The patient is alert awake oriented X-3 under no distress, lying down comfortably, does not look ill/toxic. Patient has good eye contact. Patient is cooperative. VITALS: All vitals were reviewed and the pulse ox is 96%, which is normal according to my interpretation HEENT: Normocephalic, atraumatic and nontender. Pupils are equal and reactive. Oral mucosa is moist. NECK: Supple, nontender, no meningismus, no JVD. There is no thyromegaly and no lymphadenopathy. CHEST: Nontender on palpation no deformity and no crepitus. CARDIOVASCULAR: Heart regular rhythm, no murmur or gallop rub or extra beats. LUNGS: Clear to auscultation bilaterally with symmetrical chest rise. No laboring tachypnea or wheezing. No intercostal subcostal retraction. No rales and no rhonchi. ABDOMEN: Soft, flat, mild tenderness to LLQ, no guarding or gross peritoneal findings. There are no abnormal masses palpated. No pulsatile masses or bruits. Active and normal bowel sounds. EXTREMITIES: Normal inspection and palpation. No edema. No cyanosis. Patient is able to move all 4 extremities well SKIN: Warm and dry, no rashes noted. MUSCULOSKELETAL: No lumbar or midline bony tenderness. There is no CVA tenderness. No paraspinal muscle spasm or tenderness. NEURO: Cranial nerves II through XII grossly intact. There are no focal neurologic deficits noted. GCS is 15 PSYCHIATRIC: Patient is in normal mood and affect, cooperative. LYMPHATICS: No major lymphadenopathy noted. Course Quality Measures none Orders Category Date Time Status IV [Insert IV] NOW Care 03/05/25 01:55 Active CBC Stat Lab 03/04/25 18:45 Completed CMP [Comprehensive Metabolic Panel] Stat Lab 03/04/25 18:45 Completed CMP [Comprehensive Metabolic Panel] Stat Lab 03/05/25 04:45 Completed INR [Prothrombin Time with INR] Stat Lab 03/04/25 18:45 Completed PTT [Partial Thromboplastin Time] Stat Lab 03/04/25 18:45 Completed Type and Screen Stat Lab 03/04/25 18:45 Completed Urinalysis, C/S if Indicated Stat Lab 03/04/25 19:32 Completed ALBUTEROL RT 0.5ml [Proventil Rt 0.5ml] Med 03/05/25 01:51 Discontinued 10 mg INH X1 ONE ALBUTEROL RT 3ml [Proventil Rt 3ml] Med 03/05/25 01:29 Discontinued 10 mg INH X1 ONE HYDROcodone*/APAP 5/325 [[place] 5/325] Med 03/04/25 18:28 Discontinued 1 tab PO X1 ONE Sod Polystyrene Sulfon Susp [Kayexalate Susp] Med 03/05/25 01:29 Discontinued 30 gm PO X1 ONE Sodium Bicarb 8.4% 50ml Vial* Med 03/05/25 01:29 Discontinued 100 meq IV X1 ONE Sodium Chloride 0.9% 500 ml [Ns] 500 ml Med 03/05/25 05:07 Active IV 5 mls/hr Sodium Chloride Rt Moraima 0.9% [NS Rt Moraima 0.9%] Med 03/05/25 01:51 Active 3 ml INH PRN PRN Vital Signs Vital signs: Vital Signs Temperature 98.3 F 03/04/25 18:15 Pulse Rate 66 03/04/25 18:15 Respiratory Rate 18 03/04/25 18:15 Blood Pressure 125/68 03/04/25 18:15 Pulse Oximetry (%) 98 03/04/25 18:15 Oxygen Delivery Method Room Air 03/04/25 18:15 Abdominal Pain MDM MDM Narrative MDM Narrative:: Scribe Attestation: Светлана Maya, am scribing for and in the presence of Dr. Connor. Provider Notation: Although this document has been carefully reviewed, there may still be some phonetic and other typographical errors. These errors are purely grammatical due to imperfections in the software program and should not be construed in any way to compromise the substance of the patient's medical care during this visit. Patient presenting with LLQ abdominal pain with associated diarrhea beginning at approximately 0400. Patient evaluated 2 weeks COMMUNICATIONS OFFICER due to GI hemorrhage and placed on Protonix. Denies any fever, chills, vomiting, or bloody stools. Please see PE findings. Laboratory markers, demonstrated WBC at 11.2 stable hemoglobin of 9.8, and 558. No left shift or associated bandemia. Serum chemistries demon strate elevated creatinine with 50% reduction in GFR and increasing serum potassium, baseline 4, 6. Glucose elevated at 236. Patient placed in hyperkalemia protocol, pending Chem 7, pending disposition at that time. Additionally hydrated with 500 cc of normal saline. After treatment potassium normalized and renal function improved. Recommend increased fluids. Final diagnoses include LLQ abdominal pain of unclear etiology, renal insufficiency improved, and Hyperkalemia improved. Disposition to home. Patient data External records reviewed:: [facility] previous records (Reviewed prior ED records from 02/10/25. Patient was seen for Acute epigastric pain.) Clinical information provided by:: patient Social determinants that could affect healthcare access:: none Patient has the following chronic illnesses:: Coronary Artery Disease, Hypercholesterolemia, Hypertension, Osteomyelitis, Diabetes Mellitus Type 2, Anemia How is presenting disease/condition affected by chronic disease/condition?: exacerbated by Evaluation data The following diagnostics were reviewed and interpreted by me:: lab results Lab and/or radiology exams considered but not ordered:: None Interpretation Summary: See MDM above Medications / Prescriptions Medications or Prescriptions considered but not ordered:: None Medication administrations:: Medication Administration History Sodium Chloride (Ns) 500 mls @ 5 mls/hr IV .Q24H ONE Stop: 03/06/25 05:06 Last Admin: 03/05/25 05:11 Dose: 5 mls/hr Documented By: OBEY Sodium Chloride (Sodium Chloride Rt Moraima 0.9% 3 Ml Nebu) 3 ml INH PRN PRN PRN Reason: SOLN Stop: 04/04/25 01:50 Last Admin: 03/05/25 01:57 Dose: 3 ml Documented By: SD Discontinued Medications Hydrocodone Bitart/Acetaminophen (Hydrocodone/Apap 5/325 Tablet) 1 tab PO X1 ONE Stop: 03/04/25 18:29 Last Admin: 03/04/25 18:53 Dose: 1 tab Documented By: CONNOR Albuterol (Albuterol Rt 2.5 Mg/3 Ml Nebu) 10 mg INH X1 ONE Stop: 03/05/25 01:30 Last Admin: 03/05/25 03:33 Dose: Not Given Documented By: OBEY Non-Admin Reason: Discontinued Albuterol (Albuterol Rt 2.5 Mg/0.5 Ml Nebu) 10 mg INH X1 ONE Stop: 03/05/25 01:52 Last Admin: 03/05/25 01:55 Dose: 10 mg Documented By: SHAREE Sodium Bicarbonate (Sodium Bicarb Inj 8.4% 1 Meq/Ml 50 Ml Vial) 100 meq IV X1 ONE Stop: 03/05/25 01:30 Last Admin: 03/05/25 03:00 Dose: 100 meq Documented By: SE Sodium Polystyrene Sulfonate (Sod Polystyrene Sulfon Susp 15 Gm/60 Ml Btl) 30 gm PO X1 ONE Stop: 03/05/25 01:30 Last Admin: 03/05/25 03:01 Dose: 30 gm Documented By: See above if any Consultations Consultation(s) initiated? (list below): No Diagnosis Differential diagnosis abdominal pain: abdominal pain, calculus of kidney, constipation, diverticulitis, gastroenteritis and small bowel obstruction Most likely diagnosis given after review of the tests above:: LLQ abdominal pain of unclear etiology, renal insufficiency improved, and Hyperk alemia improved. Admission Indicated Admission indicated?: not indicated Explain why admission is indicated or not indicated:: Pending lab results Admission Request Was there a request for admission?: No Disposition Plan Disposition Plan: other (specify) (Signed out to Dr. Baker at 6 AM) Discharge Plan Plan Patient Disposition: HOME (Self Care) Prescriptions/Referrals Prescriptions/Med Rec: No Action atorvastatin 80 mg tablet 80 mg PO HS tamsulosin 0.4 mg capsule 0.4 mg PO QDAY Jardiance 25 mg tablet 25 mg PO QDAY gabapentin 100 mg capsule 100 mg PO Q12H pantoprazole [Protonix] 40 mg tablet,delayed release (DR/EC) 40 mg PO BID 30 Days Qty: 60 0RF naloxone [Narcan] 4 mg/actuation spray,non-aerosol 1 spray intranasal Q2M PRN (Reason: opioid overdose) Qty: 2 0RF Rx Instructions: spray 1 dose into ONE nostril; alternate nostrils w each dose until help arrives Referrals: No Primary/Family,Physician [Primary Care Provider] - In 1 week Problem List Clinical Impression: Left lower quadrant abdominal pain Patient/Caregiver Discharge Instructions Print Language: Haitian Stand Alone Forms: Sapna Award Info., Patient Portal Info Letter
[2025-03-05] MEDS: SODIUM CHLORIDE 0.9% 500 ML 500 ML IV (05:11)
[2025-03-05 05:42] LABS: Alanine Aminotransferase 22 U/L (10-49); Albumin, Serum 4.6 gm/dL (3.4-4.8); Albumin/Globulin Ratio 1.8 (1.2-2.2); Alkaline Phosphatase 127 U/L (46-116); Anion Gap 15 (7-16); Aspartate Amino Transferase 26 U/L (0-34); BUN/Creatinine Ratio 11 Ratio (12-20); Bilirubin,Total 0.2 mg/dL (0.3-1.2); Blood Urea Nitrogen 17 mg/dL (9-23); Calcium 9.1 mg/dL (8.3-10.6); Calcium (Corrected) 9.1 mg/dL (8.5-10.1); Carbon Dioxide 22.7 mMol/L (20.0-31.0); Chloride 106 mMol/L (98-107); Creatinine (Component) 1.6 mg/dL (0.6-1.3); Estimated Creatinine Clearance 30.8 mL/min (>60); Globulin 2.5 gm/dL (2.3-3.5); Glucose 241 mg/dL (74-106); Osmolality,Calculated 296 (275-295); Potassium 4.5 mMol/L (3.4-5.1); Sodium 144 mMol/L (136-145); Total Protein 7.1 gm/dL (5.7-8.2); eGFR 45 See Note
[2025-03-05 06:27] VITALS: BP 106/55; PULSE 74; RESP 18; O2SAT 98
== END 2025-03-05 06:28 | disposition home or self-care (01) ==
PROVIDERS: Physician Assistant; Emergency Provider Emergency Medicine
DX: R10.32 Left lower quadrant pain (principal); E11.621 Type 2 diabetes mellitus with foot ulcer; E78.5 Hyperlipidemia, unspecified; I10 Essential (primary) hypertension; I25.10 Atherosclerotic heart disease of native coronary artery without angina pectoris; Z79.899 Other long term (current) drug therapy; Z95.1 Presence of aortocoronary bypass graft
CPT/HCPCS: 36415; 80053; 81001; 85025; 85610; 85730; 86850; 86900; 86901; 94640; 94644; 99283; J7999; A9270; J7611

== ENCOUNTER 2025-04-29 13:07 | Emergency (ER) | payer MEDICARE, SELFPAY ==
[2025-04-29 13:58] VITALS: BP 161/75; PULSE 63; RESP 20; TEMP 36.9; O2SAT 98
--- NOTE | 2025-04-29 14:37 | PD.EDEXREM ---
ED Extremity Problem RME/HPI General Chief complaint: General Adult/Misc Complain Stated complaint: L GREAT TOE PAIN RIGHT SECOND TOE PAIN, DIABETIC Time Seen by Provider: 04/29/25 13:33 Arrival date/time: 04/29/25 13:07 RME / HPI RME / HPI Narrative: 75 year old male with history of CAD s/p CABG, hypertension, diabetes, hyperlipidemia, left great toe osteomyelitis, s/p right great toe amputation presents to the ED for evaluation of wound to the right fourth toe today. Patient states he is under the care of physician at [facility] and reportedly had been evaluated there 3 days ago where he was advised to come to the ED for further evaluation. Patient reports chronic pain to bilateral feet (left x 4 months, right x1 month) and pain today is unchanged. Denies any new trauma or injuries. Denies fevers, chills, sweats, nausea, vomiting. No other associated symptoms or complaints reported. Related Data Home Medications ?Medication ?Instructions ?Recorded ?Confirmed atorvastatin 80 mg tablet 80 mg PO HS 02/11/25 02/11/25 empagliflozin 25 mg tablet 25 mg PO QDAY 02/11/25 02/11/25 (Jardiance) gabapentin 100 mg capsule 100 mg PO Q12H 02/11/25 02/11/25 tamsulosin 0.4 mg capsule 0.4 mg PO QDAY 02/11/25 02/11/25 Previous Rx's ?Medication ?Instructions ?Recorded naloxone 4 mg/actuation nasal 1 spray intranasal Q2M PRN opioid 02/14/25 spray (Narcan) overdose #2 ea amoxicillin 875 mg-potassium 1 tab PO BID #40 tabs 04/29/25 clavulanate 125 mg tablet doxycycline hyclate 100 mg capsule 100 mg PO BID #40 caps 04/29/25 Allergies Allergy/AdvReac Type Severity Reaction Status Date / Time No Known Allergies Allergy Verified 04/29/25 13:10 Review of Systems Review of Systems Systems Reviewed: All systems reviewed, normal except as documented Past Medical History Past Medical History CARDIAC: Positive Coronary Artery Disease, Hypercholesterolemia and Hypertension MUSCULOSKELETAL: Positive Osteomyelitis ENDOCRINE: Positive Endocrine Disorders and Diabetes Mellitus Type 2 HEMATOLOGIC: Positive Blood Disorders and Anemia OTHER HISTORY: Positive Blood Transfusions Surgical History SURGICAL: Positive Cardiac Surgery, Coronary Artery Bypass Graft and Amputation Social History SMOKING STATUS: Never smoker SECOND HAND EXPOSURE: No ED Exam Narrative Physical exam: Constitutional: Awake, alert, nontoxic, no acute distress HEENT: Normocephalic, atraumatic, extraocular movements intact. Extremities: Rigth great toe amputation, there is a small 0.5cm in diameter area of necrosis to the right fourth toe with no increased heat or surrounding erythema, no discharge. The distal right foot skin is cool to touch. The left great toe has unstageable ulcer to the entire distal end of toe with fibrinous tissue present, mild erythema to the skin adjacent to wound. Skin: Warm, dry, intact except as noted. Course Quality Measures none Orders Category Date Time Status XR toe(s) Bl min 2V Stat Exams 04/29/25 14:48 Completed CBC Stat Lab 04/29/25 15:15 Completed CMP [Comprehensive Metabolic Panel] Stat Lab 04/29/25 15:15 Completed CRP [C-Reactive Protein] Stat Lab 04/29/25 15:15 Completed ESR [Sed Rate (ESR)] Stat Lab 04/29/25 15:15 Completed Amoxicillin/Pot Clav 875 [Augmentin 875] Med 04/29/25 16:27 Discontinued 1 tab PO X1 ONE Doxycycline [Vibramycin] Med 04/29/25 16:25 Discontinued 100 mg PO X1 ONE Vital Signs Vital signs: Vital Signs Temperature 98.4 F 04/29/25 13:58 Pulse Rate 63 04/29/25 13:58 Respiratory Rate 20 04/29/25 13:58 Blood Pressure 161/75 H 04/29/25 13:58 Pulse Oximetry (%) 98 04/29/25 13:58 Oxygen Delivery Method Room Air 04/29/25 13:58 Pulse ox is 98% on room air which is adequate. Extremity Problem MDM Narrative MDM Narrative:: 75-year-old male coming in for evaluation of toe ulcerations. Has already been seen by vascular earlier this week and is due for follow-up appointment early next week. Was told to go to the emergency department for evaluation of the toe ulcerations prior to his next appointment in a few days. Patient denies symptoms otherwise including fever or significant pain to the feet. Exam findings reveal toe ulcerations likely secondary to peripheral arterial disease. Labs and x-rays ordered for further evaluation. Haydee Maya am scribing for and in the presence of Dr. Lucero. Patient data External records reviewed:: [facility] previous records Clinical information provided by:: patient Social determinants that could affect healthcare access:: none Patient has the following chronic illnesses:: CAD s/p CABG, hypertension, diabetes, hyperlipidemia, left great toe osteomyelitis, s/p right great toe amputation How is presenting disease/condition affected by chronic disease/condition?: exacerbated by Evaluation data The following diagnostics were reviewed and interpreted by me:: lab results and radiology exam(s) Lab and/or radiology exams considered but not ordered:: None Interpretation Summary: Ordering Physician: Brigitte Lucero MD Date of Service: 04/29/25 Procedure(s): XR toe(s) Bl min 2V Accession Number(s): [id number] cc: Gómez King MD; Tani Porras MD; Brigitte Lucero MD~ EXAMINATION: Bilateral toes 6 views TECHNIQUE: AP oblique lateral right and left toes 6 views Date and time: April 29, 2025, 1452 hours INDICATIONS: Nonhealing ulcer left first digit and left fourth digit couple days FINDINGS: Severe osteopenia Soft tissue vascular calcification Early cortical erosion ungual tuft distal phalanx left first digit Amputation right first digit Old fracture deformity proximal phalanx right second digit Cortical bone destruction ungual tuft tip distal phalanx right second digit IMPRESSION: Early osteomyelitis ungual tuft tip distal phalanx left first digit 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 (list below): No Diagnosis Most likely diagnosis given after review of the tests above:: Osteomyelitis of the toe Admission Indicated Admission indicated?: not indicated Admission Request Was there a request for admission?: No Disposition Plan Disposition Plan: Discharge Discharge Attestation Discharge Attestation: The patient and all family members were given an opportunity to ask questions and understood the discharge instructions. Discharge instructions specifically effects, indications for sooner follow up or return to the emergency department, and the expected course of current diagnosis. Patient condition: Stable Discharge Plan Plan Patient Disposition: HOME (Self Care) Patient condition on transfer: Stable Prescriptions/Referrals Prescriptions/Med Rec: New amoxicillin-pot clavulanate 875-125 mg tablet 1 tab PO BID Qty: 40 0RF doxycycline hyclate 100 mg capsule 100 mg PO BID Qty: 40 0RF No Action atorvastatin 80 mg tablet 80 mg PO HS tamsulosin 0.4 mg capsule 0.4 mg PO QDAY Jardiance 25 mg tablet 25 mg PO QDAY gabapentin 100 mg capsule 100 mg PO Q12H naloxone [Narcan] 4 mg/actuation spray,non-aerosol 1 spray intranasal Q2M PRN (Reason: opioid overdose) Qty: 2 0RF Rx Instructions: spray 1 dose into ONE nostril; alternate nostrils w each dose until help arrives Referrals: Gómez King MD [Primary Care Provider] - In 1 week Problem List Clinical Impression: Acute osteomyelitis of toe Patient/Caregiver Discharge Instructions Education Materials: Osteomyelitis Dc Additional Instructions: Algunos principios generales de zully que pueden ayudarte son los principios de ADELANTE: Agua: (beber suficiente agua fresca para mantenerse hidratado, priorizando el agua en lugar de refrescos, caf?, t?, jugos, etc.). [place] (descansar adecuadamente por la noche, acostarse unas horas antes de la medianoche y evitar las pantallas, la televisi?n y la m?jairo [place] antes de acostarse, as? jordan las comidas pesadas louie antes de acostarse). Ejercicio: (ejercicio/caminatas diarias seg?n la tolerancia). Amber solar: (exponer la piel al nae viji 15-20 minutos aproximadamente, temprano por la ma?jenifer y al atardecer, para obtener los beneficios de la vitamina D). Aire (ejercicios de respiraci?n profunda temprano por la ma?jenifer al aire mayi). Nutricion: (consumir celia dieta a base de plantas, evitar las ronn en general y los alimentos altamente procesados). Templanza (evitar el alcohol, las drogas il?citas, las bebidas con cafe?na, fumar, etc.). Trice en [place] (dedicar tiempo diariamente al estudio b?blico y la oraci?n: la contemplaci?n tiene beneficios para la zully). Recursos adicionales que pueden ser ?mary: [email or web address], consulte la secci?n de recursos y seminarios. Print Language: Albanian Stand Alone Forms: Sapna Award Info., Patient Portal Info Letter
--- NOTE | 2025-04-29 14:48 | XR_ITS ---
EXAMINATION: Bilateral toes 6 views TECHNIQUE: AP oblique lateral right and left toes 6 views Date and time: April 29, 2025, 1452 hours INDICATIONS: Nonhealing ulcer left first digit and left fourth digit couple days FINDINGS: Severe osteopenia Soft tissue vascular calcification Early cortical erosion ungual tuft distal phalanx left first digit Amputation right first digit Old fracture deformity proximal phalanx right second digit Cortical bone destruction ungual tuft tip distal phalanx right second digit IMPRESSION: Early osteomyelitis ungual tuft tip distal phalanx left first digit Early osteoarthritis ungual tuft of distal phalanx right second digit Consider MRI right and left foot without contrast follow-up
[2025-04-29 15:29] LABS: Basophils # (Auto) 0.0 Thou/mm3 (0.0-0.2); Basophils % (Auto) 1 % (0-2.5); Eosinophils # (Auto) 0.1 Thou/mm3 (0.0-0.5); Eosinophils % (Auto) 1 % (0-10); Hematocrit 29.3 % (41.0-53.0); Hemoglobin 9.5 g/dL (13.5-16.0); Immature Granulocytes Auto 0.03 Thou/mm3 (0.00-0.00); Lymphocytes # (Auto) 2.7 Thou/mm3 (1.0-4.8); Lymphocytes % (Auto) 34 % (10-50); Mean Corpuscular HGB Conc 32.4 g/dl (31.0-37.0); Mean Corpuscular Hemoglobin 31.5 pg (25.0-35.0); Mean Corpuscular Volume 97 fL (80-100); Monocytes # (Auto) 0.6 Thou/mm3 (0.0-0.8); Monocytes % (Auto) 7 % (0-12); Neutrophils # (Auto) 4.6 Thou/mm3 (1.8-7.7); Neutrophils % (Auto) 57 % (37-80); Nucleated Red Blood Cell # 0.00 Thou/mm3 (0.00-0.00); Nucleated Red Blood Cell % 0 /100 WBC (0); Platelet Count 322 Thou/mm3 (140-440); RDW Standard Deviation 54.6 fL (35.1-43.9); Red Blood Count 3.02 Miln/mm3 (4.50-5.90); White Blood Count 8.1 Thou/mm3 (3.8-10.6)
[2025-04-29 15:59] LABS: Sed Rate (ESR) 46 mm/hr (0-20)
[2025-04-29 16:17] LABS: Alanine Aminotransferase 52 U/L (10-49); Albumin, Serum 4.5 gm/dL (3.4-4.8); Albumin/Globulin Ratio 1.6 (1.2-2.2); Alkaline Phosphatase 145 U/L (46-116); Anion Gap 10 (7-16); Aspartate Amino Transferase 27 U/L (0-34); BUN/Creatinine Ratio 19 Ratio (12-20); Bilirubin,Total 0.3 mg/dL (0.3-1.2); Blood Urea Nitrogen 31 mg/dL (9-23); C-Reactive Protein < 0.5 mg/dL (0.0-0.9); Calcium 9.1 mg/dL (8.3-10.6); Calcium (Corrected) 9.1 mg/dL (8.5-10.1); Carbon Dioxide 24.9 mMol/L (20.0-31.0); Chloride 105 mMol/L (98-107); Creatinine (Component) 1.6 mg/dL (0.6-1.3); Globulin 2.9 gm/dL (2.3-3.5); Glucose 346 mg/dL (74-106); Osmolality,Calculated 299 (275-295); Potassium 5.2 mMol/L (3.4-5.1); Sodium 140 mMol/L (136-145); Total Protein 7.4 gm/dL (5.7-8.2); eGFR 45 See Note
[2025-04-29] MEDS: AMOXICILLIN/POT CLAV 875 TABLET 1 TAB PO (16:36)
[2025-04-29] MEDS: DOXYCYCLINE 100 MG TABLET PO (16:36)
[2025-04-29 17:09] VITALS: BP 177/79; PULSE 61
== END 2025-04-29 18:22 | disposition home or self-care (01) ==
PROVIDERS: Emergency Provider Family Medicine; PCP Family Medicine
DX: M86.172 Other acute osteomyelitis, left ankle and foot (principal); M19.071 Primary osteoarthritis, right ankle and foot; Z89.411 Acquired absence of right great toe
CPT/HCPCS: 36415; 73660; 80053; 85025; 85652; 86140; 99283; A9270

== ENCOUNTER → 2025-05-03 | Outpatient (CLI) | payer MEDICARE, SELFPAY ==
--- NOTE | 2025-05-03 07:30 | XR_ITS ---
Examination: MRI left foot without contrast Date and time of exam: May 03, 2025, 0808 hours INDICATIONS: Nonhealing wound plantar surface of the distal phalanx left great toe with tenderness and pain 5 months Technique: Multiple axial sagittal and coronal images of the left foot have been obtained with the Siemens high-resolution 1.5 Sole MRI scanner. Images obtained include T2-weighted fat-suppressed sagittal sections, TR 3500, TE 46, T2 weighted coronal fat suppressed images, TR 3050, TE 84, T2-weighted transverse fat suppressed images, TR 3260, TE 63, proton density transverse images, TR 4720 TE 46, and T1 weighted coronal images, TR 560, TE 13. Findings: Significant cortical bone destruction involving the distal half of the distal phalanx first digit No soft tissue abscess No occult fracture Plantar fascia intact with moderate plantar fasciitis Mild thickening of the Achilles tendon Moderate osteoarthritis first metatarsophalangeal joint IMPRESSION: Significant osteomyelitis distal one half distal phalanx first digit
== END | disposition home or self-care (01) ==
PROVIDERS: PCP Family Medicine; Referring Provider Family Medicine; Visit Provider Family Medicine
DX: M86.8X7 Other osteomyelitis, ankle and foot (principal)
CPT/HCPCS: 73718